=== PATIENT | male | born 1975 | race Caucasian/White ===

== ENCOUNTER → 2016-08-07 | Outpatient (CLI) | payer OTHER ==
[~2016-08-07] MED LIST: BENZ2TAB PO; HYDR-3366 PO; LEVO.1 PO; LURA120T PO; MEDI220T PO; VENL75XR PO; WALKER/ADULT/FO1 MIS; XARE10TA PO
[2016-08-07 10:54] LABS: BLOOD, URINE NEG (NEG); GLUCOSE,URINE NEG (NEG); KETONE, URINE NEG (NEG); MUCUS URINE FEW /lpf (OCC); NITRITE,URINE NEG (NEG); PH, URINE 6.5 (5.0-8.5); URINE COLOR YELLOW (YELLW/STRAW)
[2016-08-07 10:55] LABS: COMMENT (UR) CULT NOT INDICATED; CULTURE IF INDICATED CULT NOT INDICATED
[2016-08-07 10:57] LABS: AUTOMATED NEUTROPHIL # 4.1 TH/MM3 (1.8-7.7); BASOPHIL % 0.4 % (0.0-2.0); EOSINOPHIL # 0.1 TH/MM3 (0-0.4); EOSINOPHIL % 1.4 % (0.0-4.0); HEMATOCRIT 38.6 % (39.0-51.0); HEMO FLAGS DIFF FINAL; LYMPH % 23.2 % (9.0-44.0); LYMPHOCYTE # 1.4 TH/MM3 (1.0-4.8); MEAN CELL VOLUME 99.2 FL (80.0-100.0); MEAN CORPUSCULAR HEMOGLOBIN 35.1 PG (27.0-34.0); MEAN CORPUSCULAR HGB CONC 35.4 % (32.0-36.0); MONO % 8.8 % (0.0-8.0); NEUT % 66.2 % (16.0-70.0); PLATELET COUNT 327 TH/MM3 (150-450); RED BLOOD COUNT 3.89 MIL/MM3 (4.50-5.90); WHITE BLOOD COUNT 6.2 TH/MM3 (4.0-11.0)
[2016-08-07 11:26] LABS: ANION GAP 8 MEQ/L (5-15); AST (GOT) 12 U/L (15-37); BICARBONATE 24.8 MEQ/L (21.0-32.0); BLOOD UREA NITROGEN 12 MG/DL (7-18); CHLORIDE 106 MEQ/L (98-107); GLUCOSE,FASTING 98 MG/DL (74-99); SODIUM (NA) 139 MEQ/L (136-145)
[2016-08-07 11:37] LABS: ALKALINE PHOSPHATASE 120 U/L (45-117); ALT (GPT) 18 U/L (12-78); GLOMERULAR FILTRATION RATE 91 ML/MIN (>89); HDL CHOLESTEROL 45.4 MG/DL (40.0-60.0); LDL CHOLESTEROL 110 MG/DL (0-99); TOTAL BILIRUBIN ADULT 0.5 MG/DL (0.2-1.0)
== END ==
LOC: CLAB 10:26
PROVIDERS: ATTEND Family Medicine
DX: R30.0 Dysuria (principal); E03.9 Hypothyroidism, unspecified; F99 Mental disorder, not otherwise specified; Z72.0 Tobacco use
CPT/HCPCS: 36415; 80053; 80061; 81001; 84443; 85025

== ENCOUNTER 2016-09-23 11:53 | Inpatient (IN) | payer OTHER ==
[~2016-09-23] VITALS: Ht 175.3 cm; Wt 67.7 kg
[~2016-09-23 11:53] MED LIST changes: -HYDR-3366 PO; -WALKER/ADULT/FO1 MIS; -XARE10TA PO
[2016-09-23 11:54] VITALS: BP 137/69; PULSE 80; RESP 16; TEMP 97.9; O2SAT 97
--- NOTE | 2016-09-23 12:11 | PD ---
HPI . left knee pain and difficulty walking for 2 weeks Chief Complaint: Musculoskeletal Complaint Time Seen by Provider: 12:11 Travel History International Travel<30 days: No Contact w/Intl Traveler<30days: No Traveled to known affect area: No History of Present Illness HPI 41-year-old male who is a patient of the [facility] who had hip fractures not too long ago here with complaints of a fall about 2 weeks ago landing on his left knee. Patient says he has pain in his left knee and proximal tib-fib for about 2 weeks. He has had difficulty walking, but been using crutches from his previous injuries. He has not yet followed up with Dr. Balderrama in the [facility] and decided to come to the emergency room for evaluation. He rates the pain as 9/10 without any radiation. The pain is localized right to the distal knee and proximal tib-fib area. PFSH Past Medical History Cancer: No Cardiovascular Problems: No Genitourinary: No Musculoskeletal: No Neurologic: No Psychiatric: Yes (SCHIZOPHRENIA ) Reproductive: No Respiratory: No Thyroid Disease: Yes Social History Alcohol Use: No Tobacco Use: Yes Substance Use: No Allergies-Medications (Allergen,Severity, Reaction): Coded Allergies: Levothyroxine (Verified Adverse Reaction, Severe, 09/23/16) Reported Meds & Prescriptions Reported Meds & Active Scripts Active Synthroid (Levothyroxine Sodium) 100 Mcg Tab 100 Mcg PO DAILY Effexor XR 24 HR (Venlafaxine HCl) 75 Mg Cap 75 Mg PO DAILY Benztropine (Benztropine Mesylate) 2 Mg Tab 2 Mg PO BID Latuda (Lurasidone) 120 Mg Tab 160 Mg PO HS Naproxen Sodium 220 Mg Tab 440 Mg PO BID Review of Systems General / Constitutional: No: Fever Eyes: No: Visual changes HENT: No: Headaches Cardiovascular: No: Chest Pain or Discomfort Respiratory: No: Shortness of Breath Gastrointestinal: No: Abdominal Pain Genitourinary: No: Dysuria Musculoskeletal: Positive: Pain (left knee pain) Skin: No Rash Neurologic: No: Weakness Psychiatric: No: Depression Endocrine: No: Polydipsia Hematologic/Lymphatic: No: Easy Bruising Physical Exam Narrative GENERAL: AAO x 3, no acute distress, Well-nourished, well-developed patient. SKIN: Warm and dry. No visible rashes or bruising. HEAD: Normocephalic and atraumatic. EYES: No scleral icterus. No injection or drainage. EOM intact, PERRLA ENT: No nasal drainage noted. Mucous membranes pink. Airway patent. NECK: Supple, trachea midline. No JVD. CARDIOVASCULAR: Regular rate and rhythm without murmurs, gallops, or rubs. RESPIRATORY: Breath sounds equal bilaterally. No accessory muscle use. No rhonchi or rales. GASTROINTESTINAL: Abdomen soft, non-tender, nondistended. EXTREMITIES: No cyanosis or edema. left knee slightly edematous compared to right, no definitive effusion appreciated.There is limited extension due to pain and tenderness in the left distal knee and prox tib/fib BACK: Nontender without obvious deformity. No CVA tenderness. PSYCH: AAO x 3, normal affect. Data Data Last Documented VS Vital Signs Date Time Temp Pulse Resp B/P Pulse Ox O2 Delivery O2 Flow Rate FiO2 09/23/16 11:54 97.9 80 16 137/69 97 Orders Knee, Complete (4vws) (09/23/16 12:19) Methylprednisolone So Succ Inj (Solumedr (09/23/16 12:30) Ct Knee W/O Contrast (09/23/16 ) MDM Medical Decision Making Medical Screen Exam Complete: Yes Emergency Medical Condition: Yes Medical Record Reviewed: Yes Differential Diagnosis knee fracture, tib/fib fracture, less likely dislocation, Narrative Course 41-year-old male who is a patient of the [facility] who had hip fractures not too long ago here with complaints of a fall about 2 weeks ago landing on his left knee. Patient says he has pain in his left knee and proximal tib-fib for about 2 weeks. He has had difficulty walking, but been using crutches from his previous injuries. He has not yet followed up with Dr. Balderrama in the [facility] and decided to come to the emergency room for evaluation. He rates the pain as 9/10 without any radiation. The pain is localized right to the distal knee and proximal tib area. Patient seen and examined. He does have tenderness on left knee and pain with movement. He additionally has limited ROM and I do not know how he has been moving around for 2 weeks. Xray ordered for possible fracture 1430: Discussed with Dr. Estevez's nurse get CT scan of knee to further evaluate fracture to see if admission vs. f/u as outpatient CT resulted: call placed for a call back to ortho: [id number] Last Impressions Knee X-Ray 09/23/16 1219 Signed Impressions: Service Date/Time: Friday, September 23, 2016 13:00 - CONCLUSION: T-shaped fracture involving proximal tibia and tibial plateau. Teto Salazar MD FACR Lower Extremity CT 09/23/16 0000 Signed Impressions: Service Date/Time: Friday, September 23, 2016 16:24 - CONCLUSION: Comminuted proximal tibial fractures involving medial, lateral, and posterior lateral articular surface and with fracture lines extending to the iliac spines. There is also a solitary longitudinal fracture through the proximal fibula. Kevin Traylor MD spoke with Dr. Gregorio Spain NP for Dr. Estevez patient to be admitted for repair tomorrow. Dr. Hanson may be involved with the case. Knee immobilizer and non wt bearing. He will need a medical admission. I have transferred case to the medical beds. That provider will admit the patient. Diagnosis Primary Impression: Tibial plateau fracture, left Qualified Code: S82.142A - Tibial plateau fracture, left, closed, initial encounter Additional Impression: Tibial fracture Qualified Code: S82.192A - Other closed fracture of proximal end of left tibia , initial encounter Admitting Information Admitting Physician Requests: Admit Condition: Stable Sagrario Morris Sep 23, 2016 12:11
[2016-09-23] MEDS ORDERED: methylPREDNISolone SOD SUCC 125 MG/2 ML VIAL IM ONE (12:30)
--- NOTE | 2016-09-23 13:22 | RADRPT ---
EXAM DATE/TIME: 09/23/2016 13:00 [facility] COMPARISON: No previous studies available for comparison. INDICATIONS : Pain from falling off of a roof. MEDICAL HISTORY : None. SURGICAL HISTORY : None. ENCOUNTER: Initial ACUITY: 2 weeks PAIN SCORE: 7/10 LOCATION: Left knee. FINDINGS: There is a horizontal fracture across the proximal tibia with a vertical component that does extend i nto the medial plateau. A small bony fragment is evident. Joint effusion is noted. Fibula is intac t. CONCLUSION: T-shaped fracture involving proximal tibia and tibial plateau. Teto Salazar MD FACR on September 23, 2016 at 13:14 Board Certified Radiologist. This report was verified electronically.
--- NOTE | 2016-09-23 17:32 | RADRPT ---
EXAM DATE/TIME: 09/23/2016 16:24 [facility] COMPARISON: KNEE LEFT COMPLETE (4VWS), September 23, 2016, 13:00. INDICATIONS : Fall two weeks ago; left knee pain. RADIATION DOSE: 5.27 CTDIvol (mGy) MEDICAL HISTORY : None SURGICAL HISTORY : None. ENCOUNTER: Initial ACUITY: 2 weeks PAIN SCALE: 5/10 LOCATION: Left knee TECHNIQUE: Volumetric scanning of the knee was performed. Using automated exposure control and adjustment of th e mA and/or kV according to patient size, radiation dose was kept as low as reasonably achievable to obtain optimal diagnostic quality images. FINDINGS: There are comminuted fractures of the proximal tibia with comminuted fracture lines oblique through t he posterior metaphysis, oblique through the lateral metaphysis, oblique through the medial diametaph yseal region. Fracture line also extends through the lateral tibial spine. There is a another fract ure line which extends into the articular surface of the medial tibial plateau anteriorly with severa l millimeters step off. There is a posterior intra-articular fracture line in the lateral tibial bob teau. There is also a longitudinal fracture through the distal fibula. No fracture is seen in the patella or distal femur. Small size knee effusion. CONCLUSION: Comminuted proximal tibial fractures involving medial, lateral, and posterior lateral articular surfa ce and with fracture lines extending to the iliac spines. There is also a solitary longitudinal frac ture through the proximal fibula. Kevin Traylor MD on September 23, 2016 at 17:20 Board Certified Radiologist. This report was verified electronically.
[2016-09-23 19:00] VITALS: BP 128/73; PULSE 73; RESP 14; O2SAT 97
[2016-09-23] MEDS ORDERED: SODIUM CHLORID 0.9% 500 ML INJ 500 ML IV ONE (19:00)
[2016-09-23] MEDS ORDERED: SODIUM CHLORIDE 0.9% FLUSH 10 ML FLUSH IVF PRN (19:00)
[2016-09-23] MEDS ORDERED: MORPHINE SULFATE 4 MG/ML INJ IV PUSH ONE (19:30)
[2016-09-23 19:31] LABS: AUTOMATED NEUTROPHIL # 8.2 TH/MM3 (1.8-7.7); HEMATOCRIT 37.1 % (39.0-51.0); HEMO FLAGS DIFF FINAL; LYMPH % 3.6 % (9.0-44.0); LYMPHOCYTE # 0.3 TH/MM3 (1.0-4.8); MEAN CELL VOLUME 101.3 FL (80.0-100.0); MEAN CORPUSCULAR HEMOGLOBIN 34.9 PG (27.0-34.0); MEAN CORPUSCULAR HGB CONC 34.4 % (32.0-36.0); MONO % 0.6 % (0.0-8.0); NEUT % 95.8 % (16.0-70.0); PLATELET COUNT 415 TH/MM3 (150-450); RED BLOOD COUNT 3.66 MIL/MM3 (4.50-5.90); RED CELL DISTRIBUTION WIDTH 13.2 % (11.6-17.2); WHITE BLOOD COUNT 8.6 TH/MM3 (4.0-11.0)
[2016-09-23 19:40] LABS: PROTHROMBIN TIME - PATIENT 11.3 SEC (9.8-11.6)
[2016-09-23 19:47] LABS: BICARBONATE 27.3 MEQ/L (21.0-32.0); POTASSIUM 4.1 MEQ/L (3.5-5.1)
[2016-09-23 20:00] VITALS: BP 109/69; PULSE 78; RESP 20; TEMP 96.5; O2SAT 99
--- NOTE | 2016-09-23 20:12 | PD ---
HPI Chief Complaint: Musculoskeletal Complaint Time Seen by Provider: 18:35 Travel History International Travel<30 days: No Contact w/Intl Traveler<30days: No Traveled to known affect area: No History of Present Illness HPI 41-year-old male came to the emergency room for left leg pain after a fall injury 1 week ago. 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 He landed on his left knee. He was in pain initially but then decided to continue walking with crutches. The patient was not getting better he decided to come in today. He was seen by the provider in triage. X-ray was ordered which showed comminuted tib-fib fracture. She discussed the case with the orthopedist who wanted the patient to be admitted and a CAT scan. CT was ordered and done as well prior to patient coming into the room. [facility] Past Medical History Narrative Medical List of his past medical, surgical, social and family history was reviewed from the nursing note. Cancer: No Cardiovascular Problems: No Genitourinary: No Musculoskeletal: No Neurologic: No Psychiatric: Yes (SCHIZOPHRENIA ) Reproductive: No Respiratory: No Thyroid Disease: Yes Past Surgical History Surgical History: No Previous Surgery Social History Alcohol Use: No Tobacco Use: Yes (1ppd) Substance Use: No Allergies-Medications (Allergen,Severity, Reaction): Coded Allergies: Levothyroxine (Verified Adverse Reaction, Severe, 09/23/16) Comments List of his allergies reviewed from the nursing note. Reported Meds & Prescriptions Reported Meds & Active Scripts Active Synthroid (Levothyroxine Sodium) 100 Mcg Tab 100 Mcg PO DAILY Effexor XR 24 HR (Venlafaxine HCl) 75 Mg Cap 75 Mg PO DAILY Benztropine (Benztropine Mesylate) 2 Mg Tab 2 Mg PO BID Latuda (Lurasidone) 120 Mg Tab 160 Mg PO HS Naproxen Sodium 220 Mg Tab 440 Mg PO BID Narrative Medication List of his home medications reviewed from the nursing note. Review of Systems Except as stated in HPI: all other systems reviewed are Neg Physical Exam Narrative GENERAL: Awake, alert, no obvious distress SKIN: Focused skin assessment warm/dry. HEAD: Atraumatic. Normocephalic. EYES: Pupils equal and round. No scleral icterus. No injection or drainage. ENT: No nasal bleeding or discharge. Mucous membranes pink and moist. NECK: Trachea midline. No JVD. CARDIOVASCULAR: Regular rate and rhythm. No murmur appreciated. RESPIRATORY: No accessory muscle use. Clear to auscultation. Breath sounds equal bilaterally. GASTROINTESTINAL: Abdomen soft, non-tender, nondistended. Hepatic and splenic margins not palpable. MUSCULOSKELETAL: No obvious deformities. No clubbing. No cyanosis. No edema. Left leg knee immobilizer on. Distal pulses are not palpable but Doppler better. Sensation intact. NEUROLOGICAL: Awake and alert. No obvious cranial nerve deficits. Motor grossly within normal limits. Normal speech. PSYCHIATRIC: Appropriate mood and affect; insight and judgment normal. Data Data Last Documented VS Vital Signs Date Time Temp Pulse Resp B/P Pulse Ox O2 Delivery O2 Flow Rate FiO2 09/23/16 19:00 73 14 128/73 97 Room Air 09/23/16 11:54 97.9 Orders Knee, Complete (4vws) (09/23/16 12:19) Methylprednisolone So Succ Inj (Solumedr (09/23/16 12:30) Ct Knee W/O Contrast (09/23/16 ) ^ Knee Immobilizer (09/23/16 18:20) Electrocardiogram (09/23/16 18:52) Basic Metabolic Panel (Bmp) (09/23/16 18:52) Complete Blood Count With Diff (09/23/16 18:52) Prothrombin Time / Inr (Pt) (09/23/16 18:52) Sodium Chloride 0.9% Flush (Ns Flush) (09/23/16 19:00) Sodium Chlorid 0.9% 500 Ml Inj (Ns 500 M (09/23/16 19:00) Npo After Midnight W/ Po Meds (09/23/16 Dinner) Morphine Inj (Morphine Inj) (09/23/16 19:30) Diet Heart Healthy (09/24/16 Breakfast) Admit Order (Ed Use Only) (09/23/16 19:49) Labs Laboratory Tests Test 09/23/16 19:16 White Blood Count 8.6 TH/MM3 Red Blood Count 3.66 MIL/MM3 Hemoglobin 12.8 GM/DL Hematocrit 37.1 % Mean Corpuscular Volume 101.3 FL Mean Corpuscular Hemoglobin 34.9 PG Mean Corpuscular Hemoglobin 34.4 % Concent Red Cell Distribution Width 13.2 % Platelet Count 415 TH/MM3 Mean Platelet Volume 8.6 FL Neutrophils (%) (Auto) 95.8 % Lymphocytes (%) (Auto) 3.6 % Monocytes (%) (Auto) 0.6 % Eosinophils (%) (Auto) 0.0 % Basophils (%) (Auto) 0.0 % Neutrophils # (Auto) 8.2 TH/MM3 Lymphocytes # (Auto) 0.3 TH/MM3 Monocytes # (Auto) 0.0 TH/MM3 Eosinophils # (Auto) 0.0 TH/MM3 Basophils # (Auto) 0.0 TH/MM3 CBC Comment DIFF FINAL Differential Comment Prothrombin Time 11.3 SEC Prothromb Time International 1.0 RATIO Ratio Sodium Level 138 MEQ/L Potassium Level 4.1 MEQ/L Chloride Level 103 MEQ/L Carbon Dioxide Level 27.3 MEQ/L Anion Gap 8 MEQ/L Blood Urea Nitrogen 17 MG/DL Creatinine 0.87 MG/DL Estimat Glomerular Filtration 96 ML/MIN Rate Random Glucose 133 MG/DL Calcium Level 9.1 MG/DL [facility] Medical Decision Making Medical Screen Exam Complete: Yes Emergency Medical Condition: Yes Medical Record Reviewed: Yes Interpretation(s) Twelve-lead EKG was reviewed by me. Normal sinus rhythm, normal axis. Heart rate of 68 bpm. Differential Diagnosis Comminuted tib-fib fracture Narrative Course 8 PM patient was admitted to the hospitalist. He is nothing by mouth after midnight. Given his abnormal appearance of the EKG I asked the patient if he had ever developed chest pain during the past one week or currently and he said that he was chest pain-free completely and never had any chest pain or arm pain or neck pain. There are no old EKGs to compare with. Procedures EKG Prior to Arrival: No Diagnosis Primary Impression: Tibial plateau fracture, left Qualified Code: S82.142A - Tibial plateau fracture, left, closed, initial encounter Additional Impression: Tibial fracture Qualified Code: S82.192A - Other closed fracture of proximal end of left tibia , initial encounter Admitting Information Admitting Physician Requests: Admit Condition: Stable Radha Nunez MD Sep 23, 2016 20:11
[2016-09-23] MEDS: SODIUM CHLOR 0.9% 1000 ML INJ 1,000 ML IV SCH (20:17)
--- NOTE | 2016-09-23 20:24 | HHI.HP ---
[facility] Primary Care Physician Admission Diagnosis tib-fib fracture Diagnoses: (1) Fall Diagnosis: Principal (2) Tibial plateau fracture, left Diagnosis: Principal (3) Schizophrenia Diagnosis: Principal (4) Tobacco abuse Diagnosis: Principal Travel History International Travel<30 Days: No Contact w/Intl Traveler <30 Da: No Traveled to Known Affected Are: No History of Present Illness This is a 41-year-old male with a PMH of Schizophrenia and Tobacco Abuse who presented to the ER with complaints of left knee pain. States pain has been ongoing for approx 2wks after a fall. States he has been getting around with crutches but has been having worsening pain. Follows w/ Dr. Balderrama as outpatient, but hasn't followed up for recent complaints. On arrival, BP 137/69 , HR 80, O2 sat 97% on RA, Afebrile. CBC essentially unremarkable except for elevated neutrophil count. Chemistry unremarkable. INR 1.0. Knee X-ray with T -shaped fracture involving proximal tibia and tibial plateau. Dr. Hickman consulted by ER physician, recommended CT Knee and consult for Dr. Hanson in am for surgical intervention. CT Knee w/ comminuted proximal tibial fractures involving medial lateral and posterior lateral articular surface with fracture lines extending into iliac spines, solitary longitudinal fracture through the proximal fibula. Review of Systems Except as stated in HPI: all other systems reviewed are Neg ROS: 14 point review of systems otherwise negative. Past Family Social History Past Medical History PMH: Schizophrenia and Tobacco Abuse Past Surgical History PAST SURGICAL HISTORY: None Allergies: Coded Allergies: Levothyroxine (Verified Adverse Reaction, Severe, 09/23/16) Family History PAST FAMILY HISTORY: Reviewed. No h/o DM or CAD Social History PAST SOCIAL HISTORY: Negative for alcohol or drugs. Positive for tobacco. Physical Exam Vital Signs Vital Signs Date Time Temp Pulse Resp B/P Pulse Ox O2 Delivery O2 Flow Rate FiO2 09/23/16 19:00 73 14 128/73 97 Room Air 09/23/16 11:54 97.9 80 16 137/69 97 Physical Exam PE: GENERAL: Young male in no acute distress. HEENT: PERRLA, EOMI. No scleral icterus or conjunctival pallor. No lid lag or facial droop. CARDIOVASCULAR: Regular rate and rhythm. No obvious murmurs to auscultation. No chest tenderness to palpation. RESPIRATORY: No obvious rhonchi or wheezing. Clear to auscultation. Breath sounds equal bilaterally. GASTROINTESTINAL: Abdomen soft, non-tender, nondistended. BS normal. MUSCULOSKELETAL: Decreased ROM of LLE due to injury. Pulses intact. NEUROLOGICAL: Awake, alert and oriented x4. No focal neurologic deficits. Moving both upper and lower extremities spontaneously. Laboratory Laboratory Tests Test 09/23/16 19:16 White Blood Count 8.6 Red Blood Count 3.66 Hemoglobin 12.8 Hematocrit 37.1 Mean Corpuscular Volume 101.3 Mean Corpuscular Hemoglobin 34.9 Mean Corpuscular Hemoglobin 34.4 Concent Red Cell Distribution Width 13.2 Platelet Count 415 Mean Platelet Volume 8.6 Neutrophils (%) (Auto) 95.8 Lymphocytes (%) (Auto) 3.6 Monocytes (%) (Auto) 0.6 Eosinophils (%) (Auto) 0.0 Basophils (%) (Auto) 0.0 Neutrophils # (Auto) 8.2 Lymphocytes # (Auto) 0.3 Monocytes # (Auto) 0.0 Eosinophils # (Auto) 0.0 Basophils # (Auto) 0.0 CBC Comment DIFF FINAL Differential Comment Prothrombin Time 11.3 Prothromb Time International 1.0 Ratio Sodium Level 138 Potassium Level 4.1 Chloride Level 103 Carbon Dioxide Level 27.3 Anion Gap 8 Blood Urea Nitrogen 17 Creatinine 0.87 Estimat Glomerular Filtration 96 Rate Random Glucose 133 Calcium Level 9.1 Result Diagram: 09/23/16191509/23/161915 Assessment and Plan Problem List: (1) Fall ICD Code: W19.XXXA Status: Acute (2) Tibial plateau fracture, left ICD Code: S82.142A Status: Acute (3) Schizophrenia ICD Code: F20.9 Status: Chronic (4) Tobacco abuse ICD Code: Z72.0 Status: Chronic Assessment and Plan A/P: 1. Fall: s/p mechanical slip and fall 2 wks ago, denies head trauma or LOC, reports difficulty walking x2 wks w/ increasing pain, has been using crutches, no medical attention for injuries. 2. Left Tibial Plateau Fx: s/p fall 2 wks ago w/ ongoing c/o pain, mild swelling to left knee. X-ray w/ T-shaped fracture involving proximal tibia and tibial plateau, images reviewed by me. Dr. Hickman consulted by ER physician, recommended CT LE and consult for Dr. Hanson in a.m. for surgical intervention. CT LE with comminuted proximal tibial fractures extending to the iliac spines and solitary longitudinal fracture through proximal fibula, images reviewed by me. Keep NPO for surgical intervention, IVF, analgesics/antiemetics as needed. 3. Schizophrenia: Resume home Benztropine, Latuda and Effexor. 4. Tobacco Abuse: Pt counselled. Ativan/NicoDerm prn 5. DVT Prophylaxis: Anticoagulation post op per Ortho 6. Social work for d/c planning as needed. 7. Case discussed w/ ER physician at length. Physician Certification 2 Midnight Certification Type: Admission for Inpatient Services Order for Inpatient Services The services are ordered in accordance with Medicare regulations or non- Medicare payer requirements, as applicable. In the case of services not specified as inpatient-only, they are appropriately provided as inpatient services in accordance with the 2-midnight benchmark. Estimated LOS (days): 2 days is the estimated time the patient will need to remain in the hospital, assuming treatment plan goals are met and no additional complications. Post-Hospital Plan: Not yet determined Problem Qualifiers (1) Tibial plateau fracture, left: Qualified Code: S82.142A - Tibial plateau fracture, left, closed, initial encounter Lizbet Hernandez MD Sep 23, 2016 20:24
[2016-09-23] MEDS ORDERED: ONDANSETRON HCL 4 MG/2 ML VIAL IVP PRN (20:30)
[2016-09-23] MEDS ORDERED: ACETAMINOPHEN 325 MG TAB PO PRN (20:30)
[2016-09-23] MEDS ORDERED: BISACODYL 10 MG SUPP RECTAL PRN (20:30)
[2016-09-23] MEDS ORDERED: SODIUM CHLORIDE 0.9% FLUSH 10 ML FLUSH IV FLUSH PRN (20:30)
[2016-09-23] MEDS: SODIUM CHLORIDE 0.9% FLUSH 10 ML FLUSH IV FLUSH SCH (21:00)
--- NOTE | 2016-09-23 23:43 | EKG ---
Date Performed: 09/23/2016 Time Performed: 19:12:39 PTAGE: 41 years EKG: Sinus rhythm SEPTAL MYOCARDIAL INFARCTION INTERPRETATION BASED ON A DEFAULT AGE OF 39 YEARS NO PREVIOUS TRACING DOCTOR: Zelalem Zamora Interpretating Date/Time 09/23/2016 23:41:32
[2016-09-23] MEDS: MORPHINE SULFATE 4 MG/ML INJ IV PRN (23:44)
[2016-09-24] VITALS: BP 102/57; PULSE 82; RESP 20; TEMP 97.4; O2SAT 95
[2016-09-24] MEDS: BENZTROPINE MESYLATE 2 MG TAB PO SCH ×3 (00:09→19:58)
[2016-09-24] MEDS: LURASIDONE 40 MG TAB PO SCH ×2 (00:10→19:59)
[2016-09-24] MEDS ORDERED: LORazepam 2 MG/ML VIAL IV PUSH PRN (01:00)
[2016-09-24] MEDS: SODIUM CHLOR 0.9% 1000 ML INJ 1,000 ML IV SCH (06:17)
[2016-09-24 06:44] LABS: AUTOMATED NEUTROPHIL # 7.9 TH/MM3 (1.8-7.7); BASOPHIL % 0.3 % (0.0-2.0); EOSINOPHIL % 0.2 % (0.0-4.0); HEMATOCRIT 35.3 % (39.0-51.0); HEMO FLAGS DIFF FINAL; LYMPH % 10.2 % (9.0-44.0); MEAN CELL VOLUME 101.6 FL (80.0-100.0); MEAN CORPUSCULAR HEMOGLOBIN 34.2 PG (27.0-34.0); MEAN CORPUSCULAR HGB CONC 33.6 % (32.0-36.0); MONO % 8.8 % (0.0-8.0); NEUT % 80.5 % (16.0-70.0); PLATELET COUNT 390 TH/MM3 (150-450); RED BLOOD COUNT 3.47 MIL/MM3 (4.50-5.90); RED CELL DISTRIBUTION WIDTH 13.4 % (11.6-17.2); WHITE BLOOD COUNT 9.8 TH/MM3 (4.0-11.0)
[2016-09-24 06:45] LABS: ALT (GPT) 12 U/L (12-78); ANION GAP 4 MEQ/L (5-15); AST (GOT) 11 U/L (15-37); BICARBONATE 28.8 MEQ/L (21.0-32.0); BLOOD UREA NITROGEN 22 MG/DL (7-18); CHLORIDE 109 MEQ/L (98-107); GLOMERULAR FILTRATION RATE 98 ML/MIN (>89); POTASSIUM 4.4 MEQ/L (3.5-5.1); SODIUM (NA) 142 MEQ/L (136-145)
[2016-09-24 06:48] LABS: ALKALINE PHOSPHATASE 181 U/L (45-117); TOTAL BILIRUBIN ADULT 0.3 MG/DL (0.2-1.0)
[2016-09-24] MEDS: MORPHINE SULFATE 4 MG/ML INJ IV PRN ×3 (07:16→16:23)
[2016-09-24 07:21] VITALS: BP 97/55; PULSE 75; RESP 16; TEMP 95.9; O2SAT 95
[2016-09-24] MEDS ORDERED: LEVOTHYROXINE SODIUM 100 MCG TAB PO SCH (09:00)
[2016-09-24] MEDS: SODIUM CHLORIDE 0.9% FLUSH 10 ML FLUSH IV FLUSH SCH ×2 (09:00→19:59)
--- NOTE | 2016-09-24 09:09 | HHI.PR ---
Subjective Remarks No acute events overnight. Afebrile, vital signs stable. The patient states his knee pain is well controlled on his current medication regimen. He has no other complaints at this time. Objective Vitals Vital Signs Date Time Temp Pulse Resp B/P Pulse Ox O2 Delivery O2 Flow Rate FiO2 09/24/16 07:21 95.9 75 16 97/55 95 09/24/16 00:00 97.4 82 20 102/57 95 09/23/16 20:00 96.5 78 20 109/69 99 09/23/16 19:00 73 14 128/73 97 Room Air 09/23/16 11:54 97.9 80 16 137/69 97 I/O 09/23/16 09/23/16 09/23/16 09/24/16 09/24/16 09/24/16 07:00 15:00 23:00 07:00 15:00 23:00 Intake Total 240 ml 0 ml Output Total 200 ml 0 ml Balance 40 ml 0 ml Intake Oral 240 ml 0 ml Output Urine Total 200 ml 0 ml # Voids 1 # Bowel Movements 0 0 Result Diagram: 09/24/16 0551 09/24/16 0551 Objective Remarks Gen.: No acute distress Head: Normocephalic. Atraumatic. EENT: Pupils equal round and reactive to light. Nose without drainage. Airway intact. Throat without injection. Cardiovascular: Regular rate and rhythm. No murmurs, rubs or gallops. Respiratory: Lungs clear to auscultation bilaterally. No wheezes or rhonchi. Abdomen: Soft, nontender, nondistended. No peritoneal signs. Musculoskeletal: No gross deformities. No edema. Skin: No obvious rashes or erythema. Neuro: Sensory and motor grossly intact. Cranial nerves II through XII grossly intact. Psych: Appropriate mood and affect A/P Problem List: (1) Fall ICD Code: W19.XXXA Status: Acute (2) Tibial plateau fracture, left ICD Code: S82.142A Status: Acute (3) Schizophrenia ICD Code: F20.9 Status: Chronic (4) Tobacco abuse ICD Code: Z72.0 Status: Chronic Assessment and Plan 1. Fall: s/p mechanical slip and fall 2 wks ago, denies head trauma or LOC, reports difficulty walking x2 wks w/ increasing pain, has been using crutches, no medical attention for injuries. 2. Left Tibial Plateau Fx: s/p fall 2 wks ago w/ ongoing c/o pain, mild swelling to left knee. X-ray w/ T-shaped fracture involving proximal tibia and tibial plateau. Orthopedic surgery consulted, plan for patient to go to surgery today. CT LE with comminuted proximal tibial fractures extending to the iliac spines and solitary longitudinal fracture through proximal fibula. Keep NPO for surgical intervention, IVF, analgesics/antiemetics as needed. 3. Schizophrenia: Resume home Benztropine, Latuda and Effexor. 4. Tobacco Abuse: Pt counselled. Ativan/NicoDerm prn 5. DVT Prophylaxis: Anticoagulation post op per Ortho 6. Social work for d/c planning as needed. Problem Qualifiers (1) Tibial plateau fracture, left: Qualified Code: S82.142A - Tibial plateau fracture, left, closed, initial encounter Aileen Vazquez MD R3 Sep 24, 2016 09:08
[2016-09-24] MEDS: VENLAFAXINE HCL XR 75 MG CAP PO SCH (09:34)
[2016-09-24 11:29] VITALS: BP 97/55; PULSE 77; RESP 16; TEMP 97; O2SAT 97
--- NOTE | 2016-09-24 12:16 | MB ---
cc: RYLIE HOGUE DATE OF CONSULTATION: 09/24/2016 REASON FOR CONSULTATION: Left tibial plateau fracture. HISTORY The patient is a 41-year-old man who says about 2 weeks ago sustained an injury after a fall. The patient noticed immediate pain but did not think it was too severe. He got some crutches to stay off of it and ultimately he was advised that since he was having some sharp pain he should probably come in and have it checked out at the hospital. X-rays were taken. He was found to have a complex proximal tibial plateau fracture. The emergency room contacted the undersigned. I reviewed the case. I recommended to get a CT scan to further characterize the nature of this injury. The patient does not complain of numbness or tingling about the lower extremity. He said he has some bruising on the leg. He denies pain in the right lower extremity or bilateral upper extremities. He denies any significant problems with that knee in the past. The patient was placed in a canvas knee splint and admitted to the hospital. PAST MEDICAL HISTORY: Past medical history is positive for tobacco abuse and history of schizophrenia. PAST SURGICAL HISTORY None. ALLERGIES Levothyroxine FAMILY HISTORY: Noncontributory. SOCIAL HISTORY Negative for alcohol or illicit drugs. Positive for tobacco. REVIEW OF SYSTEMS: A 12 point review of systems is negative except as noted in the history of present illness. PHYSICAL EXAMINATION: The patient's temperature is 97.9, pulse is 80, blood pressure is 137/69. GENERAL: The patient is awake, alert and oriented x3. Normal affect, insight and judgment. He is not in any significant distress from pain. Head: Atraumatic. Extraocular muscles are intact. Oropharynx is moist. Neck: Supple. Heart: Regular rate and rhythm. Lungs: Clear to auscultation bilaterally. Abdomen: Soft, non-tender, non-distended. Extremities: Left lower extremity currently has a canvas knee splint applied. He has some mild swelling with no tenderness about the calf. He can actually move the toes well. He has 2+ dorsalis pedis pulse on the left foot. His right lower extremity has no tenderness about the knee or the ankle, moves toes well. His bilateral upper extremities have good active range of motion. LABORATORY STUDIES: Laboratory studies shows a white cell count of 8.6, hematocrit 37.1, platelets of 415, creatinine is 0.87, glucose 133. I reviewed the images and the report associated with the knee x-ray and the CT scan of the knee, and essentially shows a bicondylar tibial plateau fracture of the lateral side, is only minimally displaced, however, on the medial side. There is a coronal split with at least some mild displacement of the articular surface. IMPRESSION: Complex tibial plateau fracture, bicondylar left leg. Chronic tobacco use. Schizophrenia DECISION-MAKING: This is a very complex fracture pattern on the leg. I have recommended complete non-weightbearing on the leg and the use of a canvas knee splint. I would like to consult one of my partner's, Dr. Hanson, who is a dedicated orthopedic traumatologist to have his opinion on whether surgical management would be indicated for this injury, especially because of that split, with some displacement of the articular surface. I am concerned that with nonoperative management, the patient could potentially have a significant increased chance for arthritis and pain. Additionally nonoperative management could be fraught with problems of displacement of the fracture leading to angular deformity or further incongruity of the joint surface, however, surgical management does have its own risks such as injury, bleeding, infection, failure of hardware, need for reoperation, continued pain, loss of range of motion to associated joints, DVT, pulmonary embolus, pneumonia and . At this point, the treatment plan has not been completely defined. MD LANDON Dillon/JEROMY /11:04 AM /12:03 PM
[2016-09-24 15:25] VITALS: BP 106/53; PULSE 91; RESP 18; TEMP 97.7; O2SAT 97
[2016-09-24 20:00] VITALS: BP 112/70; PULSE 76; RESP 16; TEMP 97.3; O2SAT 97
[2016-09-24] MEDS: ACETAMINOPHEN/HYDROcodone 325 MG/5 MG TAB PO PRN (20:06)
[2016-09-24 23:25] VITALS: BP 105/60; PULSE 77; RESP 20; TEMP 97.3; O2SAT 97
[2016-09-25] MEDS: MORPHINE SULFATE 4 MG/ML INJ IV PRN ×2 (05:37→10:01)
[2016-09-25 06:46] LABS: BASOPHIL # 0.1 TH/MM3 (0-0.2); BASOPHIL % 0.7 % (0.0-2.0); EOSINOPHIL # 0.2 TH/MM3 (0-0.4); EOSINOPHIL % 1.7 % (0.0-4.0); HEMATOCRIT 34.9 % (39.0-51.0); HEMO FLAGS DIFF FINAL; LYMPH % 20.6 % (9.0-44.0); LYMPHOCYTE # 1.8 TH/MM3 (1.0-4.8); MEAN CELL VOLUME 101.5 FL (80.0-100.0); MEAN CORPUSCULAR HEMOGLOBIN 34.6 PG (27.0-34.0); MEAN CORPUSCULAR HGB CONC 34.1 % (32.0-36.0); PLATELET COUNT 366 TH/MM3 (150-450); RED BLOOD COUNT 3.44 MIL/MM3 (4.50-5.90); RED CELL DISTRIBUTION WIDTH 13.8 % (11.6-17.2); WHITE BLOOD COUNT 8.8 TH/MM3 (4.0-11.0)
[2016-09-25 07:09] LABS: BICARBONATE 30.8 MEQ/L (21.0-32.0); POTASSIUM 3.7 MEQ/L (3.5-5.1)
--- NOTE | 2016-09-25 07:14 | PD.ORT.PN ---
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 Slipped on shingle. Fell to ground. Injured 2 weeks ago and came to the ER this weekend. Diagnosed with a left tibia plateau fracture. States he has been on crutches and has been nonweightbearing. Smokes approximately a pack of cigarettes a day Objective Vitals Vital Signs Date Time Temp Pulse Resp B/P Pulse Ox O2 Delivery O2 Flow Rate FiO2 09/24/16 23:25 97.3 77 20 105/60 97 09/24/16 20:00 97.3 76 16 112/70 97 09/24/16 15:25 97.7 91 18 106/53 97 09/24/16 11:29 97.0 77 16 97/55 97 09/24/16 07:21 95.9 75 16 97/55 95 I/O 09/24/16 09/24/16 09/24/16 09/25/16 09/25/16 09/25/16 07:00 15:00 23:00 07:00 15:00 23:00 Intake Total 0 ml 480 ml 480 ml Output Total 0 ml 650 ml 600 ml Balance 0 ml 480 ml -170 ml -600 ml Intake Oral 0 ml 480 ml 480 ml Output Urine Total 0 ml 650 ml 600 ml # Voids 2 1 # Bowel Movements 0 0 0 Result Diagram: 09/25/16 0550 09/24/16 0551 Imaging Last 72 hours Impressions Knee X-Ray 09/23/16 1219 Signed Impressions: Service Date/Time: Friday, September 23, 2016 13:00 - CONCLUSION: T-shaped fracture involving proximal tibia and tibial plateau. Teto Salazar MD FACR Lower Extremity CT 09/23/16 0000 Signed Impressions: Service Date/Time: Friday, September 23, 2016 16:24 - CONCLUSION: Comminuted proximal tibial fractures involving medial, lateral, and posterior lateral articular surface and with fracture lines extending to the iliac spines. There is also a solitary longitudinal fracture through the proximal fibula. Kevin Traylor MD Objective Remarks Left lower extremity: No pain with hip or ankle range of motion. Knee range of motion is from 0 to 80. He has tenderness over both the lateral and medial plateaus. Moderate swelling and skin is intact. Distally intact sensation with good capillary refills and strong dorsiflexion plantar flexion foot Assessment & Plan Assessment and Plan Left tibia plateau fracture Nothing by mouth after midnight Surgery tomorrow for fixation of plateau Nonweightbearing and maintain knee immobilizer Ice and elevate Tyler Huffman Jr. Sep 25, 2016 07:14
[2016-09-25 07:27] VITALS: BP 118/71; PULSE 68; RESP 18; TEMP 96.8; O2SAT 97
[2016-09-25] MEDS: SODIUM CHLORIDE 0.9% FLUSH 10 ML FLUSH IV FLUSH SCH (09:00)
--- NOTE | 2016-09-25 09:18 | HHI.PR ---
Subjective Remarks f/u tib/fib fracture. patient stated pain is controlled. he has no complaints. he asked for his pain medication and coffee. No acute events. Objective Vitals Vital Signs Date Time Temp Pulse Resp B/P Pulse Ox O2 Delivery O2 Flow Rate FiO2 09/25/16 07:27 96.8 68 18 118/71 97 09/24/16 23:25 97.3 77 20 105/60 97 09/24/16 20:00 97.3 76 16 112/70 97 09/24/16 15:25 97.7 91 18 106/53 97 09/24/16 11:29 97.0 77 16 97/55 97 I/O 09/24/16 09/24/16 09/24/16 09/25/16 09/25/16 09/25/16 07:00 15:00 23:00 07:00 15:00 23:00 Intake Total 0 ml 480 ml 480 ml Output Total 0 ml 650 ml 600 ml Balance 0 ml 480 ml -170 ml -600 ml Intake Oral 0 ml 480 ml 480 ml Output Urine Total 0 ml 650 ml 600 ml # Voids 2 1 # Bowel Movements 0 0 0 Result Diagram: 09/25/16 0550 09/25/16 0550 Objective Remarks GENERAL: in NAD CARDIOVASCULAR: Regular rate and rhythm without murmurs, gallops, or rubs. RESPIRATORY: Breath sounds equal bilaterally. No accessory muscle use. GASTROINTESTINAL: Abdomen soft, non-tender, nondistended. MUSCULOSKELETAL: left leg in knee immobilizer. + 2 DP pulses and sensation intact. BACK: Nontender without obvious deformity. No CVA tenderness. Medications and IVs Current Medications Methylprednisolone Sodium Succinate (SoluMEDROL INJ) 125 mg ONCE ONCE IM Last administered on 09/23/16 12:40; Start 09/23/16 at 12:30; Stop 09/23/16 at 12:31; Status DC Sodium Chloride 2 ml 2 ml UNSCH PRN IVF FLUSH AFTER USING IV ACCESS; Start 09/23 at 19:00 Sodium Chloride (NS 500 ml Inj) 500 ml @ 500 mls/hr ONCE ONCE IV Last administered on 09/23/16 19:32; Start 09/23/16 at 19:00; Stop 09/23/16 at 19:59; Status DC Morphine Sulfate 4 mg 4 mg ONCE ONCE IV PUSH Last administered on 09/23/16 19: 32; Start 09/23/16 at 19:30; Stop 09/23/16 at 19:31; Status DC Sodium Chloride (NS 1000 ml Inj) 1,000 ml @ 100 mls/hr Q10H IV Last administered on 09/23/16 20:17; Start 09/23/16 at 20:17 Sodium Chloride (NS Flush) 2 ml UNSCH PRN IV FLUSH FLUSH AFTER USING IV ACCESS ; Start 09/23/16 at 20:30 Sodium Chloride (NS Flush) 2 ml BID IV FLUSH Last administered on 09/24/16 19: 59; Start 09/23/16 at 21:00 Ondansetron HCl (Zofran Inj) 4 mg Q6H PRN IVP NAUSEA OR VOMITING; Start at 20:30 Bisacodyl (Dulcolax Supp) 10 mg DAILY PRN RECTAL CONSTIPATION; Start 09/23/16 at 20:30 Acetaminophen (Tylenol) 650 mg Q6H PRN PO FEVER/PAIN SCALE 1 TO 2; Start at 20:30 Acetaminophen/ Hydrocodone Bitart ([place] 5-325 Mg) 1 tab Q4H PRN PO PAIN SCALE 3 TO 5 Last administered on 09/24/16 20:06; Start 09/23/16 at 20:30 Morphine Sulfate (Morphine Inj) 2 mg Q3H PRN IV Pain 6-10 Last administered on 09/25/16 05:37; Start 09/23/16 at 20:30 Benztropine Mesylate (Cogentin) 2 mg BID PO Last administered on 09/24/16 19:58 ; Start 09/23/16 at 21:00 Levothyroxine Sodium (Synthroid) 100 mcg DAILY PO ; Start 09/24/16 at 09:00; Stop 09/24/16 at 09:00; Status DC Lurasidone HCl (Latuda) 160 mg HS PO Last administered on 09/24/16 19:59; Start 09/23/16 at 21:00 Venlafaxine HCl (Effexor Xr) 75 mg DAILY PO Last administered on 09/24/16 09:34 ; Start 09/24/16 at 09:00 Lorazepam (Ativan Inj) 2 mg Q3H PRN IV PUSH WITHDRAWAL/AGITATION; Start at 01:00 Magnesium Hydroxide (Milk Of Magnesia Liq) 30 ml DAILY PRN PO BM; Start at 09:00 Sennosides (Senokot) 17.2 mg DAILY PO ; Start 09/25/16 at 09:00 A/P Problem List: (1) Fall ICD Code: W19.XXXA Status: Acute (2) Tibial plateau fracture, left ICD Code: S82.142A Status: Acute (3) Schizophrenia ICD Code: F20.9 Status: Chronic (4) Tobacco abuse ICD Code: Z72.0 Status: Chronic Assessment and Plan This is a 41 y/o M with s/p mechanical slip and fall 2 wks ago Left Tibial Plateau Fx -s/p fall 2 wks ago w/ ongoing c/o pain, mild swelling to left knee. -X-ray w/ T-shaped fracture involving proximal tibia and tibial plateau. -patient scheduled for fixation of plateau tomorrow. -continue with onweightbearing and maintain knee immobilizer, ice and elevate, and pain control. Patient NPO tonight. Schizophrenia -continue home Benztropine, Latuda and Effexor. Tobacco Abuse - Pt counselled. Ativan/NicoDerm prn DVT Prophylaxis: Anticoagulation post op per Ortho Surgery tomorrow for fixation of plateau Discharge Planning patient schedule for surgery tomorrow. Problem Qualifiers (1) Tibial plateau fracture, left: Qualified Code: S82.142A - Tibial plateau fracture, left, closed, initial encounter Blanca Ramirez MD Sep 25, 2016 09:18
[2016-09-25] MEDS: MAGNESIUM HYDROXIDE SUSP 30 ML CUP PO PRN (09:56)
[2016-09-25] MEDS: SENNOSIDES 8.6 MG TAB PO SCH (09:56)
[2016-09-25] MEDS: BENZTROPINE MESYLATE 2 MG TAB PO SCH ×2 (09:57→22:03)
[2016-09-25] MEDS: VENLAFAXINE HCL XR 75 MG CAP PO SCH (09:57)
[2016-09-25 12:00] VITALS: BP 112/67; PULSE 75; RESP 18; TEMP 97.4; O2SAT 97
[2016-09-25] MEDS: ACETAMINOPHEN/HYDROcodone 325 MG/5 MG TAB PO PRN ×3 (13:52→22:02)
[2016-09-25 16:00] VITALS: BP 108/62; PULSE 65; RESP 18; TEMP 96.1; O2SAT 96
[2016-09-25 19:42] VITALS: BP 128/74; PULSE 86; RESP 18; TEMP 97.7; O2SAT 97
[2016-09-25 20:15] VITALS: BP 114/63; PULSE 74; RESP 17; TEMP 96.8; O2SAT 95
[2016-09-25] MEDS: LACTULOSE SYRUP 20 GM/30 ML CUP PO SCH (22:02)
[2016-09-25] MEDS: LURASIDONE 40 MG TAB PO SCH (22:03)
[2016-09-25] MEDS ORDERED: SODIUM CHLORID 0.9% 500 ML IV PRN (23:45)
[2016-09-25] MEDS ORDERED: CHLORHEXIDINE GLUCONATE 2 % 1 PACK (2 CLOTHS) TOPICAL PRN (23:45)
[2016-09-25] MEDS ORDERED: METOPROLOL TARTRATE 25 MG TAB PO PRN (23:45)
[2016-09-25] MEDS ORDERED: INSULIN HUMAN REGULAR 1,000 UNITS/10 ML VIAL SQ PRN (23:45)
[2016-09-25] MEDS ORDERED: POVIDONE IODINE 5% (ANTISEPSIS KIT) 4 APPLICATIONS EACH NARE PRN (23:45)
[2016-09-25] MEDS ORDERED: LACTATED RINGER'S 1000 ML INJ 1,000 ML IV SCH (23:45)
[2016-09-26 00:15] VITALS: BP 121/74; PULSE 78; RESP 17; TEMP 97.1; O2SAT 96
[2016-09-26 04:15] VITALS: BP 110/68; PULSE 78; RESP 17; TEMP 97; O2SAT 95
[2016-09-26] MEDS: ACETAMINOPHEN/HYDROcodone 325 MG/5 MG TAB PO PRN (05:01)
--- NOTE | 2016-09-26 06:56 | PD.ORT.PN ---
Subjective Subjective Remarks Pain controlled no new complaints Objective Vitals Vital Signs Date Time Temp Pulse Resp B/P Pulse Ox O2 Delivery O2 Flow Rate FiO2 09/26/16 04:15 97.0 78 17 110/68 95 09/26/16 00:15 97.1 78 17 121/74 96 09/25/16 20:15 96.8 74 17 114/63 95 09/25/16 16:00 96.1 65 18 108/62 96 09/25/16 12:00 97.4 75 18 112/67 97 09/25/16 09:00 Room Air 09/25/16 07:27 96.8 68 18 118/71 97 I/O 09/25/16 09/25/16 09/25/16 09/26/16 09/26/16 09/26/16 07:00 15:00 23:00 07:00 15:00 23:00 Intake Total 600 ml 240 ml Output Total 600 ml 1000 ml 1050 ml 675 ml Balance -600 ml -400 ml -810 ml -675 ml Intake Oral 600 ml 240 ml Output Urine Total 600 ml 1000 ml 1050 ml 675 ml # Bowel Movements 0 0 0 Result Diagram: 09/25/16 0550 09/25/16 0550 Imaging Last 72 hours Impressions Knee X-Ray 09/23/16 1219 Signed Impressions: Service Date/Time: Friday, September 23, 2016 13:00 - CONCLUSION: T-shaped fracture involving proximal tibia and tibial plateau. Teto Salazar MD FACR Lower Extremity CT 09/23/16 0000 Signed Impressions: Service Date/Time: Friday, September 23, 2016 16:24 - CONCLUSION: Comminuted proximal tibial fractures involving medial, lateral, and posterior lateral articular surface and with fracture lines extending to the iliac spines. There is also a solitary longitudinal fracture through the proximal fibula. Kevin Traylor MD Objective Remarks Left lower extremity: No pain with hip or ankle range of motion. Knee range of motion is from 0 to 80. He has tenderness over both the lateral and medial plateaus. Moderate swelling and skin is intact. Distally intact sensation with good capillary refills and strong dorsiflexion plantar flexion foot Assessment & Plan Assessment and Plan Left tibia plateau fracture Nothing by mouth Surgery today for fixation of plateau Nonweightbearing and maintain knee immobilizer Ice and elevate Tyler Huffman Jr. PA Sep 26, 2016 06:56
[2016-09-26 08:00] VITALS: BP 115/60; PULSE 70; RESP 16; TEMP 97.2; O2SAT 96
[2016-09-26] MEDS: BENZTROPINE MESYLATE 2 MG TAB PO SCH ×2 (08:28→22:02)
[2016-09-26] MEDS: VENLAFAXINE HCL XR 75 MG CAP PO SCH (08:28)
[2016-09-26] MEDS: SODIUM CHLORIDE 0.9% FLUSH 10 ML FLUSH IV FLUSH SCH ×2 (08:32→22:03)
[2016-09-26] MEDS: MORPHINE SULFATE 4 MG/ML INJ IV PRN (08:37)
[2016-09-26] MEDS ORDERED: DEXAMETHASONE SOD PHOS 4 MG/ML VIAL ONE (10:04)
[2016-09-26] MEDS ORDERED: MIDAZOLAM HCL 2 MG/2 ML VIAL ONE (10:04)
[2016-09-26] MEDS ORDERED: GENTAMICIN SULFATE 80 MG/2 ML VIAL ONE (10:54)
[2016-09-26] MEDS ORDERED: ceFAZolin 2 GM PREMIX 50 ML ONE (10:54)
[2016-09-26] MEDS ORDERED: VANCOMYCIN HCL 1000 MG VIAL ONE (10:54)
[2016-09-26] MEDS ORDERED: SODIUM CHLOR 0.9% 250 ML INJ 250 ML ONE (10:54)
[2016-09-26] MEDS ORDERED: ONDANSETRON HCL 4 MG/2 ML VIAL IV PUSH ONE (12:00)
[2016-09-26] MEDS ORDERED: PROPOFOL 200 MG/20 ML AMP IV ONE (12:00)
[2016-09-26] MEDS ORDERED: NEOSTIGMINE 3 MG/3 ML SYR IV ONE (12:00)
[2016-09-26] MEDS ORDERED: ACETAMINOPHEN 1000 MG/100 ML VIAL IV ONE (12:08)
[2016-09-26] MEDS ORDERED: DICLOFENAC SODIUM 37.5 MG/ML VIAL IV PUSH ONE (12:08)
[2016-09-26] MEDS ORDERED: MISCELLANEOUS NURSING INFORMATION XX PRN (12:30)
[2016-09-26] MEDS ORDERED: SODIUM CHLORIDE 0.9% FLUSH 5 ML FLUSH IVF PRN (12:30)
[2016-09-26] MEDS ORDERED: MORPHINE SULFATE 4 MG/ML INJ IV PUSH PRN (12:30)
[2016-09-26] MEDS ORDERED: Post-op Orders (for Pharmacy) MISC XX ONE (12:30)
--- NOTE | 2016-09-26 12:33 | PD.OP ---
cc: Carlitos Melton MD Operative Report Date of Surgery: Sep 26, 2016 Preoperative Diagnosis: Comminuted left tibia bicondylar plateau fracture Postoperative Diagnosis: Same Procedure: Open reduction internal fixation left bicondylar tibial plateau Anesthesia: Gen. Surgeon: Carlitos Melton Tube Closing Machine Operator(s): David Huffman PA-C The surgical procedure was assisted by my physician clinical lab assistant. My P.A. presence was necessary throughout this case for the manipulation and positioning of the surgical extremity. My P.A. was assisting me throughout the duration of this procedure. The skill set of a physician clinical lab assistant was medically necessary to complete this procedure. During the surgical case the surgical scrub technician was working at the back table and the physician clinical lab assistant was directly assisting me. Operation and Findings: This patient was seen and evaluated preoperatively. Patient sustained an injury resulting a bicondylar left tibial plateau fracture. Informed consent was obtained preoperatively after detailed discussion of the risks and benefits of surgery. Risk of surgery including bleeding, infection, nonunion, painful hardware, stiffness, loss of motion, arthritis, need for knee replacement, as well as medical complications including blood clots, stroke, heart attack, and were discussed. I also discussed the possibility of using allograft bone graft . Preoperatively the operative site was marked. Patient was brought to the operating room and placed on the operating room table. Intravenous sedation and general endotracheal anesthesia were administered. IV antibiotics were given and a time out procedure was preformed. Attention was now turned towards the medial tibial plateau. A 6 inch incision was made over the posterior medial aspect of the tibial plateau. Saphenous vein was protected. The PES insertion was elevated to expose the posterior medial tibial plateau. Fracture was visualized. Attention was now turned toward reduction. Traction was applied. Fracture was manipulated. The fracture occurred approximately 2 weeks ago. There was some fracture callus formation present. Osteotomes were used to mobilize the posterior medial fragment. Fracture keyed in excellent alignment. A fracture tenaculum was used to compress fracture. K wires were used for provisional fixation. Fluoroscopy confirmed excellent alignment of fracture. Two 3.5 cortical lag screws were placed from anterior to posterior. Good compression was obtained. A Synthes plate was now placed along the posterior medial tibial plateau. Plate was provisionally held to bone with K wires. Fluoroscopy confirmed plate placement. 3.5 cortical screws were used to compress plate to bone. Next the lateral plateau was visualized under fluoroscopy. There was minimal depression. A bone tamp was used to elevate a portion of the lateral plateau. Multiple locking screws were now placed in the proximal row of the plate. 3 additional 3.5 cortical screws were placed above the plate to support the articular surface.. K-wires were removed. Final fluoroscopy showed excellent alignment of fracture with well-placed hardware. The incision was thoroughly irrigated. Attention was now turned to closure. Fascia and iliotibial band were closed with #1 Vicryl,. Subcutaneous tissues closed with 3-0 Vicryl and skin was closed with anam. Sterile dressings were applied. The patient was transferred to recovery in stable condition. Carlitos Melton MD Sep 26, 2016 12:32
[2016-09-26] MEDS ORDERED: fentaNYL CITRATE 250 MCG/5 ML AMP ONE (12:50)
[2016-09-26] MEDS ORDERED: *morphine SULFATE 8 MG/ML PERIprocedure ONLY ONE (12:52)
[2016-09-26] MEDS: LACTATED RINGER'S 1000 ML INJ 1,000 ML IV SCH (13:08)
[2016-09-26] MEDS: KETOROLAC TROMETHAMINE 30 MG/ML (IVP) VIAL IVP SCH ×2 (13:30→22:03)
[2016-09-26] MEDS ORDERED: ERGOCALCIFEROL (VIT D2) 50,000 UNIT CAP PO SCH (14:00)
--- NOTE | 2016-09-26 14:23 | HHI.PR ---
Subjective Remarks patient denies any complaints denies cp/sob denies fevers/chills sp ORIF left medial plateau Objective Vitals Vital Signs Date Time Temp Pulse Resp B/P Pulse Ox O2 Delivery O2 Flow Rate FiO2 09/26/16 13:30 97.9 75 12 139/88 97 Room Air 09/26/16 13:15 78 14 135/94 96 Room Air 09/26/16 13:00 72 13 138/86 95 Room Air 09/26/16 12:45 75 12 131/86 97 Room Air 09/26/16 12:42 97.8 74 15 147/84 98 Room Air 09/26/16 08:00 97.2 70 16 115/60 96 09/26/16 04:15 97.0 78 17 110/68 95 09/26/16 00:15 97.1 78 17 121/74 96 09/25/16 20:15 96.8 74 17 114/63 95 09/25/16 16:00 96.1 65 18 108/62 96 I/O 09/25/16 09/25/16 09/25/16 09/26/16 09/26/16 09/26/16 07:00 15:00 23:00 07:00 15:00 23:00 Intake Total 600 ml 240 ml 500 ml Output Total 600 ml 1000 ml 1050 ml 675 ml 100 ml Balance -600 ml -400 ml -810 ml -675 ml 400 ml Intake Oral 600 ml 240 ml Other 500 ml Output Urine Total 600 ml 1000 ml 1050 ml 675 ml Estimated Blood Loss 100 ml # Bowel Movements 0 0 0 Result Diagram: 09/25/16 0550 09/25/16 0550 Imaging Last Impressions Knee X-Ray 09/23/16 1219 Signed Impressions: Service Date/Time: Friday, September 23, 2016 13:00 - CONCLUSION: T-shaped fracture involving proximal tibia and tibial plateau. Teto Salazar MD FACR Lower Extremity CT 09/23/16 0000 Signed Impressions: Service Date/Time: Friday, September 23, 2016 16:24 - CONCLUSION: Comminuted proximal tibial fractures involving medial, lateral, and posterior lateral articular surface and with fracture lines extending to the iliac spines. There is also a solitary longitudinal fracture through the proximal fibula. Kevin Traylor MD Objective Remarks GENERAL: in NAD CARDIOVASCULAR: Regular rate and rhythm without murmurs, gallops, or rubs. RESPIRATORY: Breath sounds equal bilaterally. No accessory muscle use. GASTROINTESTINAL: Abdomen soft, non-tender, nondistended. MUSCULOSKELETAL: left leg in knee immobilizer. + 2 DP pulses and sensation intact. BACK: Nontender without obvious deformity. No CVA tenderness. Procedures sp ORIF left medial plateau on 09/26/16 Medications and IVs Current Medications Medications (Trade) Dose Ordered Sig/Todd Route Start Time Stop Time Status Last Admin (NS 1000 ml Inj) 1,000 ml @ 100 mls/hr Q10H IV 09/23/16 20:17 09/23/16 20:17 (NS Flush) 2 ml UNSCH PRN IV FLUSH 09/23/16 20:30 (NS Flush) 2 ml BID IV FLUSH 09/23/16 21:00 09/26/16 08:32 (Zofran Inj) 4 mg Q6H PRN IVP 09/23/16 20:30 (Dulcolax Supp) 10 mg DAILY PRN RECTAL 09/23/16 20:30 (Tylenol) 650 mg Q6H PRN PO 09/23/16 20:30 (Morphine Inj) 2 mg Q3H PRN IV 09/23/16 20:30 09/26/16 08:37 (Cogentin) 2 mg BID PO 09/23/16 21:00 09/26/16 08:28 (Latuda) 160 mg HS PO 09/23/16 21:00 09/25/16 22:03 (Effexor Xr) 75 mg DAILY PO 09/24/16 09:00 09/26/16 08:28 (Ativan Inj) 2 mg Q3H PRN IV PUSH 09/24/16 01:00 (Milk Of Magnesia Liq) 30 ml DAILY PRN PO 09/25/16 09:00 09/25/16 09:56 (Senokot) 17.2 mg DAILY PO 09/25/16 09:00 09/25/16 09:56 Lactulose 30 ml 30 ml HS PO 09/25/16 21:00 09/25/16 22:02 Sodium Chloride 500 ml @ 30 mls/hr [id number] PRN IV 09/25/16 23:45 09/28/16 23:44 (Lr 1000 ml Inj) 1,000 ml @ 80 mls/hr [id number] IV 09/26/16 13:00 09/26/16 13:08 Enoxaparin Sodium 30 mg 30 mg Q24H SQ 09/27/16 12:00 Cefazolin Sodium/ Dextrose 50 ml @ 100 mls/hr Q8H IV 09/26/16 18:00 09/28/16 10:29 (Vancomycin Inj/ NS 250 ml Inj) 250 ml @ 250 mls/hr Q12H IV 09/26/16 23:00 09/27/16 23:59 Miscellaneous Information UNSCH PRN XX 09/26/16 12:30 ([place] 10-325 Mg) 1 tab Q3H PRN PO 09/26/16 12:30 (Toradol Inj) 30 mg Q8HR IVP 09/26/16 14:00 09/28/16 06:01 09/26/16 13:30 (Oscal-D 250-125) 250 mg TID PO 09/26/16 13:00 (Morphine Inj) 4 mg Q3H PRN IV PUSH 09/26/16 12:30 (Vitamin D3) 1,000 units DAILY PO 09/27/16 09:00 (Drisdol) 50,000 units Q7D PO 09/26/16 14:00 Urinary Catheter: No Vascular Central Line Catheter: No A/P Problem List: (1) Fall ICD Code: W19.XXXA Status: Acute (2) Tibial plateau fracture, left ICD Code: S82.142A Status: Acute (3) Schizophrenia ICD Code: F20.9 Status: Chronic (4) Tobacco abuse ICD Code: Z72.0 Status: Chronic (5) Anemia ICD Code: D64.9 Status: Acute Assessment and Plan 21-year-old male status post mechanical slip and fall 2 weeks ago with a resultant left tibial plateau fracture. 1. Left tibial plateau fracture: After a mechanical fall 2 weeks ago. X-ray showed T-shaped fracture involving proximal tibia and tibial plateau. Patient status post ORIF of the left tibial plateau fracture. Postop day 0. Continue pain control as per orthopedic surgery recommendations. Patient currently on Lindstrom and morphine sulfate. Patient also on IV antibiotics as per orthopedic surgery. Patient currently on vancomycin and Septisol and IV. 2. Schizophrenia: Seems to be stable. Continue home benztropine, let to that and Effexor. 3. Tobacco abuse: Advised smoking cessation. Ativan/NicoDerm when necessary. 4. Anemia: With high MCV. Will check reticulocyte count, serum B12 and folate level, TSH and liver function tests. GI prophylaxis: I will add a PPI. DVT prophylaxis: SCDs, patient scheduled to start on Lovenox subcutaneous as per orthopedic surgery on 09/27/16. Discharge Planning Continue to monitor in the medical floor. Problem Qualifiers (1) Tibial plateau fracture, left: Qualified Code: S82.142A - Tibial plateau fracture, left, closed, initial encounter (2) Anemia: Qualified Code: D64.9 - Anemia, unspecified type Lewis Cruz MD Sep 26, 2016 14:23
--- NOTE | 2016-09-26 14:35 | RADRPT ---
EXAM DATE/TIME: 09/26/2016 12:08 [facility] COMPARISON: No previous studies available for comparison. INDICATIONS : Post-op ORIF left tibial plateau fracture. MEDICAL HISTORY : None. SURGICAL HISTORY : None. ENCOUNTER: Subsequent ACUITY: 4 - 6 days PAIN SCORE: Non-responsive. LOCATION: Left knee. FINDINGS: There are postsurgical changes with operative reduction and internal fixation of the previously seen fracture. The alignment is anatomic. CONCLUSION: Postsurgical changes as above. Bradley Houser MD on September 26, 2016 at 14:33 Board Certified Radiologist. This report was verified electronically.
[2016-09-26] MEDS: MAGNESIUM HYDROXIDE SUSP 30 ML CUP PO PRN (17:20)
[2016-09-26] MEDS: CALCIUM/VITAMIN D 250 MG/125 U TAB PO SCH (17:21)
[2016-09-26] MEDS: SENNOSIDES 8.6 MG TAB PO SCH (17:21)
[2016-09-26] MEDS: ACETAMINOPHEN/HYDROcodone 325 MG/10 MG TAB PO PRN ×2 (17:22→22:01)
[2016-09-26] MEDS: ceFAZolin 2 GM PREMIX 50 ML IV SCH (17:25)
[2016-09-26 17:36] LABS: RETIC % 2.2 % (0.4-3.0); REVIEW FLAG FINAL
[2016-09-26 17:37] LABS: MEAN CELL VOLUME 100.4 FL (80.0-100.0); MEAN CORPUSCULAR HEMOGLOBIN 34.5 PG (27.0-34.0); MEAN CORPUSCULAR HGB CONC 34.3 % (32.0-36.0); PLATELET COUNT 406 TH/MM3 (150-450); RED BLOOD COUNT 3.78 MIL/MM3 (4.50-5.90); RED CELL DISTRIBUTION WIDTH 13.2 % (11.6-17.2); REVIEW FLAG FINAL; WHITE BLOOD COUNT 8.2 TH/MM3 (4.0-11.0)
[2016-09-26] MEDS ORDERED: SODIUM CHLORIDE 0.9% FLUSH 5 ML FLUSH IVF SCH (21:00)
[2016-09-26 21:07] LABS: BICARBONATE 29.9 MEQ/L (21.0-32.0); INDIRECT BILIRUBIN 0.3 MG/DL (0.0-0.8); MAGNESIUM 2.1 MG/DL (1.5-2.5); POTASSIUM 4.4 MEQ/L (3.5-5.1); TOTAL BILIRUBIN ADULT 0.4 MG/DL (0.2-1.0)
[2016-09-26] MEDS: LURASIDONE 40 MG TAB PO SCH (22:02)
[2016-09-26] MEDS: LACTULOSE SYRUP 20 GM/30 ML CUP PO SCH (22:02)
[2016-09-26] MEDS: VANCOMYCIN INJ 1,000 MG in SODIUM CHLOR 0.9% 250 ML INJ 250 ML IV SCH (22:04)
[2016-09-27] VITALS (8 sets, daily range): BP systolic 102–122; BP diastolic 58–72; PULSE 18–82; RESP 16–18; TEMP 96.5–98.3; O2SAT 93–97
[2016-09-27] MEDS: ceFAZolin 2 GM PREMIX 50 ML IV SCH ×3 (02:59→18:24)
--- NOTE | 2016-09-27 06:50 | PD.ORT.PN ---
Subjective Subjective Remarks POD 1 s/p ORIF left tibial plateau doing well. pain controlled. resting comfrotably. Objective Vitals Vital Signs Date Time Temp Pulse Resp B/P Pulse Ox O2 Delivery O2 Flow Rate FiO2 09/27/16 04:15 97.5 67 17 110/65 97 09/27/16 00:50 97.7 77 17 105/58 96 09/26/16 13:45 Room Air 09/26/16 13:30 97.9 75 12 139/88 97 Room Air 09/26/16 13:15 78 14 135/94 96 Room Air 09/26/16 13:00 72 13 138/86 95 Room Air 09/26/16 12:45 75 12 131/86 97 Room Air 09/26/16 12:42 97.8 74 15 147/84 98 Room Air 09/26/16 08:00 97.2 70 16 115/60 96 I/O 09/26/16 09/26/16 09/26/16 09/27/16 09/27/16 09/27/16 07:00 15:00 23:00 07:00 15:00 23:00 Intake Total 500 ml 480 ml Output Total 675 ml 100 ml 1050 ml Balance -675 ml 400 ml -570 ml Intake Oral 480 ml Other 500 ml Output Urine Total 675 ml 1050 ml Estimated Blood Loss 100 ml # Bowel Movements 0 0 Result Diagram: 09/26/16 1714 09/26/16 1714 Imaging Last 72 hours Impressions Knee X-Ray 09/23/16 1219 Signed Impressions: Service Date/Time: Friday, September 23, 2016 13:00 - CONCLUSION: T-shaped fracture involving proximal tibia and tibial plateau. Teto Salazar MD FACR Lower Extremity CT 09/23/16 0000 Signed Impressions: Service Date/Time: Friday, September 23, 2016 16:24 - CONCLUSION: Comminuted proximal tibial fractures involving medial, lateral, and posterior lateral articular surface and with fracture lines extending to the iliac spines. There is also a solitary longitudinal fracture through the proximal fibula. Kevin Traylor MD Objective Remarks LLE: dressings clean and dry. intact. +knee brace. good dorsiflexion. NVI Assessment & Plan Assessment and Plan 1) Left tibia plateau fracture s/p ORIF - POD 1 -NWB -maintain knee brace except for PT -PROM 0-90 -no quad sets or leg lifts -plan for potential DC home tomorrow if doing well. patient has a "[facility]" can stay in as he transitions from homeless to having care home. states has people that can help him Oj Levine Sep 27, 2016 06:50
[2016-09-27] MEDS ORDERED: HYDR-3366 PO (06:51)
[2016-09-27] MEDS ORDERED: WALKER/ADULT/FO1 MIS (06:51)
[2016-09-27] MEDS ORDERED: XARE10TA PO (06:51)
[2016-09-27 07:10] LABS: HEMATOCRIT 34.5 % (39.0-51.0); MEAN CELL VOLUME 101.3 FL (80.0-100.0); MEAN CORPUSCULAR HGB CONC 33.6 % (32.0-36.0); PLATELET COUNT 345 TH/MM3 (150-450); RED BLOOD COUNT 3.41 MIL/MM3 (4.50-5.90); REVIEW FLAG FINAL; WHITE BLOOD COUNT 7.6 TH/MM3 (4.0-11.0)
[2016-09-27 07:35] LABS: BICARBONATE 32.8 MEQ/L (21.0-32.0); POTASSIUM 4.2 MEQ/L (3.5-5.1)
[2016-09-27] MEDS: ACETAMINOPHEN/HYDROcodone 325 MG/10 MG TAB PO PRN ×4 (10:27→21:42)
[2016-09-27] MEDS: VENLAFAXINE HCL XR 75 MG CAP PO SCH (10:27)
[2016-09-27] MEDS: CALCIUM/VITAMIN D 250 MG/125 U TAB PO SCH ×3 (10:27→18:23)
[2016-09-27] MEDS: CHOLECALCIFEROL (VIT D3) 1000 UNIT TAB PO SCH (10:27)
[2016-09-27] MEDS: BENZTROPINE MESYLATE 2 MG TAB PO SCH ×2 (10:27→21:42)
[2016-09-27] MEDS: SODIUM CHLORIDE 0.9% FLUSH 10 ML FLUSH IV FLUSH SCH ×2 (10:27→21:00)
[2016-09-27] MEDS: SENNOSIDES 8.6 MG TAB PO SCH (10:28)
--- NOTE | 2016-09-27 12:01 | HHI.PR ---
Subjective Remarks patient is sitting in bed pain controlled denies cp/sob denies nausea/abdominal pain Objective Vitals Vital Signs Date Time Temp Pulse Resp B/P Pulse Ox O2 Delivery O2 Flow Rate FiO2 09/27/16 08:00 96.5 78 16 105/64 97 09/27/16 06:29 93 09/27/16 04:15 97.5 67 17 110/65 97 09/27/16 00:50 97.7 77 17 105/58 96 09/26/16 13:45 Room Air 09/26/16 13:30 97.9 75 12 139/88 97 Room Air 09/26/16 13:15 78 14 135/94 96 Room Air 09/26/16 13:00 72 13 138/86 95 Room Air 09/26/16 12:45 75 12 131/86 97 Room Air 09/26/16 12:42 97.8 74 15 147/84 98 Room Air I/O 09/26/16 09/26/16 09/26/16 09/27/16 09/27/16 09/27/16 07:00 15:00 23:00 07:00 15:00 23:00 Intake Total 500 ml 480 ml 480 ml Output Total 675 ml 100 ml 1050 ml 600 ml Balance -675 ml 400 ml -570 ml -120 ml Intake Oral 480 ml 480 ml Other 500 ml Output Urine Total 675 ml 1050 ml 600 ml Estimated Blood Loss 100 ml # Bowel Movements 0 0 0 Result Diagram: 09/27/16 0618 09/27/16 0618 Imaging Last Impressions Knee X-Ray 09/26/16 0000 Signed Impressions: Service Date/Time: Monday, September 26, 2016 12:08 - CONCLUSION: Postsurgical changes as above. Bradley Houser MD Lower Extremity CT 09/23/16 0000 Signed Impressions: Service Date/Time: Friday, September 23, 2016 16:24 - CONCLUSION: Comminuted proximal tibial fractures involving medial, lateral, and posterior lateral articular surface and with fracture lines extending to the iliac spines. There is also a solitary longitudinal fracture through the proximal fibula. Kevin Traylor MD Objective Remarks GENERAL: in NAD CARDIOVASCULAR: Regular rate and rhythm without murmurs, gallops, or rubs. RESPIRATORY: Breath sounds equal bilaterally. No accessory muscle use. GASTROINTESTINAL: Abdomen soft, non-tender, nondistended. MUSCULOSKELETAL: left leg in knee immobilizer. + 2 DP pulses and sensation intact. BACK: Nontender without obvious deformity. No CVA tenderness. Procedures sp ORIF left medial plateau on 09/26/16 Medications and IVs Current Medications Medications (Trade) Dose Ordered Sig/Todd Route Start Time Stop Time Status Last Admin (NS 1000 ml Inj) 1,000 ml @ 100 mls/hr Q10H IV 09/23/16 20:17 09/23/16 20:17 (NS Flush) 2 ml UNSCH PRN IV FLUSH 09/23/16 20:30 (NS Flush) 2 ml BID IV FLUSH 09/23/16 21:00 09/27/16 10:27 (Zofran Inj) 4 mg Q6H PRN IVP 09/23/16 20:30 (Dulcolax Supp) 10 mg DAILY PRN RECTAL 09/23/16 20:30 (Tylenol) 650 mg Q6H PRN PO 09/23/16 20:30 (Morphine Inj) 2 mg Q3H PRN IV 09/23/16 20:30 09/26/16 08:37 (Cogentin) 2 mg BID PO 09/23/16 21:00 09/27/16 10:27 (Latuda) 160 mg HS PO 09/23/16 21:00 09/26/16 22:02 (Effexor Xr) 75 mg DAILY PO 09/24/16 09:00 09/27/16 10:27 (Ativan Inj) 2 mg Q3H PRN IV PUSH 09/24/16 01:00 (Milk Of Magnesia Liq) 30 ml DAILY PRN PO 09/25/16 09:00 09/26/16 17:20 (Senokot) 17.2 mg DAILY PO 09/25/16 09:00 09/27/16 10:28 Lactulose 30 ml 30 ml HS PO 09/25/16 21:00 09/26/16 22:02 Sodium Chloride 500 ml @ 30 mls/hr [id number] PRN IV 09/25/16 23:45 09/28/16 23:44 (Lr 1000 ml Inj) 1,000 ml @ 80 mls/hr [id number] IV 09/26/16 13:00 09/26/16 13:08 Enoxaparin Sodium 30 mg 30 mg Q24H SQ 09/27/16 12:00 Cefazolin Sodium/ Dextrose 50 ml @ 100 mls/hr Q8H IV 09/26/16 18:00 09/28/16 10:29 09/27/16 10:28 (Vancomycin Inj/ NS 250 ml Inj) 250 ml @ 250 mls/hr Q12H IV 09/26/16 23:00 09/27/16 23:59 09/26/16 22:04 Miscellaneous Information UNSCH PRN XX 09/26/16 12:30 ([place] 10-325 Mg) 1 tab Q3H PRN PO 09/26/16 12:30 09/27/16 10:27 (Toradol Inj) 30 mg Q8HR IVP 09/26/16 14:00 09/28/16 06:01 09/26/16 22:03 (Oscal-D 250-125) 250 mg TID PO 09/26/16 13:00 09/27/16 10:27 (Morphine Inj) 4 mg Q3H PRN IV PUSH 09/26/16 12:30 09/27/16 03:07 (Vitamin D3) 1,000 units DAILY PO 09/27/16 09:00 09/27/16 10:27 (Drisdol) 50,000 units Q7D PO 09/26/16 14:00 09/26/16 14:00 Urinary Catheter: No Vascular Central Line Catheter: No A/P Problem List: (1) Fall ICD Code: W19.XXXA Status: Acute (2) Tibial plateau fracture, left ICD Code: S82.142A Status: Acute (3) Schizophrenia ICD Code: F20.9 Status: Chronic (4) Tobacco abuse ICD Code: Z72.0 Status: Chronic (5) Anemia ICD Code: D64.9 Status: Acute Assessment and Plan 21-year-old male status post mechanical slip and fall 2 weeks ago with a resultant left tibial plateau fracture. 1. Left tibial plateau fracture: After a mechanical fall 2 weeks ago. X-ray showed T-shaped fracture involving proximal tibia and tibial plateau. Patient status post ORIF of the left tibial plateau fracture. Postop day 1. Continue pain control as per orthopedic surgery recommendations. Patient currently on [place] and morphine sulfate. Patient also on IV antibiotics as per orthopedic surgery. Sp Vancomycin IV x3 bags and Cefazolin x 6 doses to be given betwwen yesterday and today. 2. Schizophrenia: Seems to be stable. Continue home benztropine, let to that and Effexor. 3. Tobacco abuse: Advised smoking cessation. Ativan/NicoDerm when necessary. 4. Anemia: With high MCV. Will check reticulocyte count, serum B12 and folate level, TSH and liver function tests. GI prophylaxis: I will add a PPI. DVT prophylaxis: SCDs, patient scheduled to start on Lovenox subcutaneous as per orthopedic surgery on 09/27/16. Discharge Planning Continue to monitor in the medical floor. Problem Qualifiers (1) Tibial plateau fracture, left: Qualified Code: S82.142A - Tibial plateau fracture, left, closed, initial encounter (2) Anemia: Qualified Code: D64.9 - Anemia, unspecified type Lewis Cruz MD Sep 27, 2016 12:00
[2016-09-27] MEDS: VANCOMYCIN INJ 1,000 MG in SODIUM CHLOR 0.9% 250 ML INJ 250 ML IV SCH ×2 (12:36→23:57)
[2016-09-27] MEDS: ENOXAPARIN SODIUM 30 MG/0.3 ML SYRINGE SQ SCH (12:37)
[2016-09-27] MEDS: KETOROLAC TROMETHAMINE 30 MG/ML (IVP) VIAL IVP SCH ×2 (13:49→21:45)
[2016-09-27] MEDS: LACTATED RINGER'S 1000 ML INJ 1,000 ML IV SCH (14:00)
[2016-09-27] MEDS: LURASIDONE 40 MG TAB PO SCH (21:42)
[2016-09-27] MEDS: LACTULOSE SYRUP 20 GM/30 ML CUP PO SCH (21:42)
[2016-09-28] MEDS: ceFAZolin 2 GM PREMIX 50 ML IV SCH ×2 (01:07→09:29)
[2016-09-28] MEDS: ACETAMINOPHEN/HYDROcodone 325 MG/10 MG TAB PO PRN ×6 (01:08→22:03)
[2016-09-28] MEDS: SODIUM CHLOR 0.9% 1000 ML INJ 1,000 ML IV SCH ×2 (02:12→20:17)
[2016-09-28] MEDS: KETOROLAC TROMETHAMINE 30 MG/ML (IVP) VIAL IVP SCH (05:24)
--- NOTE | 2016-09-28 06:40 | PD.ORT.PN ---
Subjective Subjective Remarks POD 2 s/p ORIF left tibial plateau doing well. pain controlled. resting comfrotably. Objective Vitals Vital Signs Date Time Temp Pulse Resp B/P Pulse Ox O2 Delivery O2 Flow Rate FiO2 09/27/16 23:55 96.6 74 17 114/62 96 09/27/16 20:00 98.1 82 18 102/58 96 09/27/16 15:40 98.3 82 18 103/65 96 09/27/16 12:00 96.8 79 18 122/72 94 09/27/16 08:00 96.5 78 16 105/64 97 I/O 09/27/16 09/27/16 09/27/16 09/28/16 09/28/16 09/28/16 07:00 15:00 23:00 07:00 15:00 23:00 Intake Total 1200 ml 720 ml 1220 ml Output Total 1900 ml 550 ml Balance -700 ml 170 ml 1220 ml Intake Oral 1200 ml 720 ml IV Total 1220 ml Output Urine Total 1900 ml 550 ml # Voids 4 # Bowel Movements 0 0 Result Diagram: 09/27/16 0618 09/27/16 0618 Imaging Last 72 hours Impressions Knee X-Ray 09/23/16 1219 Signed Impressions: Service Date/Time: Friday, September 23, 2016 13:00 - CONCLUSION: T-shaped fracture involving proximal tibia and tibial plateau. Teto Salazar MD FACR Lower Extremity CT 09/23/16 0000 Signed Impressions: Service Date/Time: Friday, September 23, 2016 16:24 - CONCLUSION: Comminuted proximal tibial fractures involving medial, lateral, and posterior lateral articular surface and with fracture lines extending to the iliac spines. There is also a solitary longitudinal fracture through the proximal fibula. Kevin Traylor MD Objective Remarks LLE: dressings clean and dry. intact. +knee brace. good dorsiflexion. NVI Assessment & Plan Assessment and Plan 1) Left tibia plateau fracture s/p ORIF - POD 2 -NWB -maintain knee brace except for PT -PROM 0-90 -no quad sets or leg lifts -plan for potential DC home tomorrow if doing well. patient has a "[facility]" can stay in as he transitions from homeless to having fpc. states has people that can help him Oj Levine Sep 28, 2016 06:40
[2016-09-28 07:52] VITALS: BP 99/60; PULSE 77; RESP 17; TEMP 97.3; O2SAT 94
[2016-09-28] MEDS: SODIUM CHLORIDE 0.9% FLUSH 10 ML FLUSH IV FLUSH SCH ×2 (09:00→21:07)
[2016-09-28] MEDS: BACITRACIN OINT 0.9 GM PKT EXTERNAL SCH ×2 (09:00→21:08)
[2016-09-28] MEDS: CHOLECALCIFEROL (VIT D3) 1000 UNIT TAB PO SCH (09:29)
[2016-09-28] MEDS: BENZTROPINE MESYLATE 2 MG TAB PO SCH ×2 (09:29→21:05)
[2016-09-28] MEDS: SENNOSIDES 8.6 MG TAB PO SCH (09:29)
[2016-09-28] MEDS: VENLAFAXINE HCL XR 75 MG CAP PO SCH (09:29)
[2016-09-28] MEDS: CALCIUM/VITAMIN D 250 MG/125 U TAB PO SCH ×3 (09:29→18:00)
[2016-09-28] MEDS: LACTATED RINGER'S 1000 ML INJ 1,000 ML IV SCH ×3 (09:32→21:06)
[2016-09-28 11:53] VITALS: BP 109/64; PULSE 81; RESP 17; TEMP 97; O2SAT 96
[2016-09-28] MEDS: ENOXAPARIN SODIUM 30 MG/0.3 ML SYRINGE SQ SCH (14:10)
--- NOTE | 2016-09-28 14:50 | HHI.PR ---
Subjective Remarks no complaints denies cp/sob stable vital signs Objective Vitals Vital Signs Date Time Temp Pulse Resp B/P Pulse Ox O2 Delivery O2 Flow Rate FiO2 09/28/16 11:53 97.0 81 17 109/64 96 09/28/16 07:52 97.3 77 17 99/60 94 09/27/16 23:55 96.6 74 17 114/62 96 09/27/16 20:00 98.1 82 18 102/58 96 09/27/16 15:40 98.3 82 18 103/65 96 I/O 09/27/16 09/27/16 09/27/16 09/28/16 09/28/16 09/28/16 07:00 15:00 23:00 07:00 15:00 23:00 Intake Total 1200 ml 720 ml 1700 ml Output Total 1900 ml 550 ml 600 ml Balance -700 ml 170 ml 1100 ml Intake Oral 1200 ml 720 ml 480 ml IV Total 1220 ml Output Urine Total 1900 ml 550 ml 600 ml # Voids 4 # Bowel Movements 0 0 0 Result Diagram: 09/27/16 0618 09/27/16 0618 Imaging Last Impressions Knee X-Ray 09/26/16 0000 Signed Impressions: Service Date/Time: Monday, September 26, 2016 12:08 - CONCLUSION: Postsurgical changes as above. Bradley Houser MD Lower Extremity CT 09/23/16 0000 Signed Impressions: Service Date/Time: Friday, September 23, 2016 16:24 - CONCLUSION: Comminuted proximal tibial fractures involving medial, lateral, and posterior lateral articular surface and with fracture lines extending to the iliac spines. There is also a solitary longitudinal fracture through the proximal fibula. Kevin Traylor MD Objective Remarks GENERAL: in NAD CARDIOVASCULAR: Regular rate and rhythm without murmurs, gallops, or rubs. RESPIRATORY: Breath sounds equal bilaterally. No accessory muscle use. GASTROINTESTINAL: Abdomen soft, non-tender, nondistended. MUSCULOSKELETAL: left leg in knee immobilizer. + 2 DP pulses and sensation intact. BACK: Nontender without obvious deformity. No CVA tenderness. Procedures sp ORIF left medial plateau on 09/26/16 Medications and IVs Current Medications Medications (Trade) Dose Ordered Sig/Todd Route Start Time Stop Time Status Last Admin (NS 1000 ml Inj) 1,000 ml @ 100 mls/hr Q10H IV 09/23/16 20:17 09/28/16 02:12 (NS Flush) 2 ml UNSCH PRN IV FLUSH 09/23/16 20:30 (NS Flush) 2 ml BID IV FLUSH 09/23/16 21:00 09/27/16 10:27 (Zofran Inj) 4 mg Q6H PRN IVP 09/23/16 20:30 (Dulcolax Supp) 10 mg DAILY PRN RECTAL 09/23/16 20:30 (Tylenol) 650 mg Q6H PRN PO 09/23/16 20:30 (Morphine Inj) 2 mg Q3H PRN IV 09/23/16 20:30 09/26/16 08:37 (Cogentin) 2 mg BID PO 09/23/16 21:00 09/28/16 09:29 (Latuda) 160 mg HS PO 09/23/16 21:00 09/27/16 21:42 (Effexor Xr) 75 mg DAILY PO 09/24/16 09:00 09/28/16 09:29 (Ativan Inj) 2 mg Q3H PRN IV PUSH 09/24/16 01:00 (Milk Of Magnesia Liq) 30 ml DAILY PRN PO 09/25/16 09:00 09/26/16 17:20 (Senokot) 17.2 mg DAILY PO 09/25/16 09:00 09/28/16 09:29 Lactulose 30 ml 30 ml HS PO 09/25/16 21:00 09/27/16 21:42 Sodium Chloride 500 ml @ 30 mls/hr [id number] PRN IV 09/25/16 23:45 09/28/16 23:44 (Lr 1000 ml Inj) 1,000 ml @ 80 mls/hr [id number] IV 09/26/16 13:00 09/28/16 09:32 (Lovenox Inj) 30 mg Q24H SQ 09/27/16 12:00 09/28/16 14:10 Miscellaneous Information UNSCH PRN XX 09/26/16 12:30 ([place] 10-325 Mg) 1 tab Q3H PRN PO 09/26/16 12:30 09/28/16 14:11 (Oscal-D 250-125) 250 mg TID PO 09/26/16 13:00 09/28/16 14:10 (Morphine Inj) 4 mg Q3H PRN IV PUSH 09/26/16 12:30 09/27/16 03:07 (Vitamin D3) 1,000 units DAILY PO 09/27/16 09:00 09/28/16 09:29 (Drisdol) 50,000 units Q7D PO 09/26/16 14:00 09/26/16 14:00 Urinary Catheter: No Vascular Central Line Catheter: No A/P Problem List: (1) Fall ICD Code: W19.XXXA Status: Acute (2) Tibial plateau fracture, left ICD Code: S82.142A Status: Acute (3) Schizophrenia ICD Code: F20.9 Status: Chronic (4) Tobacco abuse ICD Code: Z72.0 Status: Chronic (5) Anemia ICD Code: D64.9 Status: Acute Assessment and Plan 21-year-old male status post mechanical slip and fall 2 weeks ago with a resultant left tibial plateau fracture. 1. Left tibial plateau fracture: After a mechanical fall 2 weeks ago. X-ray showed T-shaped fracture involving proximal tibia and tibial plateau. Patient status post ORIF of the left tibial plateau fracture. Postop day 1. Continue pain control as per orthopedic surgery recommendations. Patient currently on [place] and morphine sulfate. Patient also on IV antibiotics as per orthopedic surgery. Sp Vancomycin IV x3 bags and Cefazolin x 6 doses to be given betwwen yesterday and today. 2. Schizophrenia: Seems to be stable. Continue home benztropine, let to that and Effexor. 3. Tobacco abuse: Advised smoking cessation. Ativan/NicoDerm when necessary. 4. Anemia: With high MCV. TSH, vitamin D, vitamin B12 and folic acid within normal range. Hemoglobin stable. GI prophylaxis: I will add a PPI. DVT prophylaxis: SCDs, patient scheduled to start on Lovenox subcutaneous as per orthopedic surgery on 09/27/16. Discharge Planning Discharge in a.m. once cleared by orthopedic surgery. Problem Qualifiers (1) Tibial plateau fracture, left: Qualified Code: S82.142A - Tibial plateau fracture, left, closed, initial encounter (2) Anemia: Qualified Code: D64.9 - Anemia, unspecified type Lewis Cruz MD Sep 28, 2016 14:50
[2016-09-28 16:00] VITALS: BP 110/70; PULSE 70; RESP 18; TEMP 97.4; O2SAT 96
[2016-09-28 20:01] VITALS: BP 117/68; PULSE 74; RESP 18; TEMP 97.8; O2SAT 96
[2016-09-28] MEDS: LACTULOSE SYRUP 20 GM/30 ML CUP PO SCH (21:05)
[2016-09-28] MEDS: LURASIDONE 40 MG TAB PO SCH (21:06)
[2016-09-29] VITALS: BP 107/71; PULSE 81; RESP 16; TEMP 98.7; O2SAT 97
[2016-09-29] MEDS: ACETAMINOPHEN/HYDROcodone 325 MG/10 MG TAB PO PRN ×3 (01:29→15:52)
[2016-09-29] MEDS: SODIUM CHLOR 0.9% 1000 ML INJ 1,000 ML IV SCH (02:39)
--- NOTE | 2016-09-29 06:47 | PD.ORT.PN ---
Subjective Subjective Remarks POD 3 s/p ORIF left tibial plateau doing well. pain controlled. resting comfrotably. Objective Vitals Vital Signs Date Time Temp Pulse Resp B/P Pulse Ox O2 Delivery O2 Flow Rate FiO2 09/29/16 04:00 Room Air 09/29/16 00:00 98.7 81 16 107/71 97 09/29/16 00:00 Room Air 09/28/16 20:01 97.8 74 18 117/68 96 09/28/16 20:00 Room Air 09/28/16 16:00 97.4 70 18 110/70 96 09/28/16 11:53 97.0 81 17 109/64 96 09/28/16 07:52 97.3 77 17 99/60 94 I/O 09/28/16 09/28/16 09/28/16 09/29/16 09/29/16 09/29/16 07:00 15:00 23:00 07:00 15:00 23:00 Intake Total 1700 ml 720 ml 480 ml 480 ml Output Total 600 ml 1200 ml 750 ml 600 ml Balance 1100 ml -480 ml -270 ml -120 ml Intake Oral 480 ml 720 ml 480 ml 480 ml IV Total 1220 ml Output Urine Total 600 ml 1200 ml 750 ml 600 ml # Bowel Movements 0 Result Diagram: 09/27/16 0618 09/27/16 0618 Imaging Last 72 hours Impressions Knee X-Ray 09/23/16 1219 Signed Impressions: Service Date/Time: Friday, September 23, 2016 13:00 - CONCLUSION: T-shaped fracture involving proximal tibia and tibial plateau. Teto Salazar MD FACR Lower Extremity CT 09/23/16 0000 Signed Impressions: Service Date/Time: Friday, September 23, 2016 16:24 - CONCLUSION: Comminuted proximal tibial fractures involving medial, lateral, and posterior lateral articular surface and with fracture lines extending to the iliac spines. There is also a solitary longitudinal fracture through the proximal fibula. Kevin Traylor MD Objective Remarks LLE: dressings clean and dry. intact. +knee brace. good dorsiflexion. NVI Assessment & Plan Assessment and Plan 1) Left tibia plateau fracture s/p ORIF - POD 3 -NWB -maintain knee brace except for PT -PROM 0-90 -no quad sets or leg lifts -patient states [facility] Patient is ambulatory with crutches safely. As long as safe, ok for discharge to [facility] -f/u with Valentin or Munir in 2 weeks Oj Levine Sep 29, 2016 06:47
[2016-09-29 08:00] VITALS: BP 98/58; PULSE 82; RESP 19; TEMP 97.2; O2SAT 93
[2016-09-29] MEDS: SODIUM CHLORIDE 0.9% FLUSH 10 ML FLUSH IV FLUSH SCH (09:36)
[2016-09-29] MEDS: CHOLECALCIFEROL (VIT D3) 1000 UNIT TAB PO SCH (09:37)
[2016-09-29] MEDS: VENLAFAXINE HCL XR 75 MG CAP PO SCH (09:37)
[2016-09-29] MEDS: CALCIUM/VITAMIN D 250 MG/125 U TAB PO SCH ×2 (09:37→11:45)
[2016-09-29] MEDS: SENNOSIDES 8.6 MG TAB PO SCH (09:37)
[2016-09-29] MEDS: BENZTROPINE MESYLATE 2 MG TAB PO SCH (09:37)
[2016-09-29] MEDS: BACITRACIN OINT 0.9 GM PKT EXTERNAL SCH (09:38)
[2016-09-29] MEDS: ENOXAPARIN SODIUM 30 MG/0.3 ML SYRINGE SQ SCH (11:45)
[2016-09-29 12:00] VITALS: BP 108/60; PULSE 79; RESP 18; TEMP 96.9; O2SAT 95
[2016-09-29] MEDS ORDERED: LURA120T PO (13:22)
[2016-09-29] MEDS ORDERED: BENZ2TAB PO (13:22)
[2016-09-29] MEDS ORDERED: VENL75XR PO (13:22)
[2016-09-29] MEDS ORDERED: LEVO.1 PO (13:22)
--- NOTE | 2016-09-29 13:23 | HHI.DCPOC ---
Discharge Care Plan Diagnosis: (1) Tibial plateau fracture, left (2) Anemia (3) Fall (4) Tobacco abuse (5) Schizophrenia Goals to Promote Your Health * To prevent worsening of your condition and complications * To maintain your health at the optimal level Directions to Meet Your Goals Take your medications as prescribed Follow your dietary instruction Follow activity as directed Keep your appointments as scheduled Take your immunizations and boosters as scheduled If your symptoms worsen call your PCP, if no PCP go to Urgent Care Center or Emergency Room Smoking is Dangerous to Your Health. Avoid second hand smoke Call the 24-hour hour crisis hotline for domestic abuse at Lewis Cruz MD Sep 29, 2016 13:23
--- NOTE | 2016-11-24 10:46 | HHI.DS ---
Discharge Summary Admission Date Sep 23, 2016 at 19:50 Discharge Date: Sep 29, 2016 Admitting Diagnosis tib-fib fracture (1) Fall ICD Code: W19.XXXA Diagnosis: Principal (2) Tibial plateau fracture, left ICD Code: S82.142A Diagnosis: Principal (3) Schizophrenia ICD Code: F20.9 Diagnosis: Secondary (4) Tobacco abuse ICD Code: Z72.0 Diagnosis: Principal (5) Anemia ICD Code: D64.9 Diagnosis: Principal Procedures sp ORIF left medial plateau on 09/26/16 Brief History - From Admission This is a 41-year-old male with a PMH of Schizophrenia and Tobacco Abuse who presented to the ER with complaints of left knee pain. States pain has been ongoing for approx 2wks after a fall. States he has been getting around with crutches but has been having worsening pain. Follows w/ Dr. Balderrama as outpatient, but hasn't followed up for recent complaints. On arrival, BP 137/69 , HR 80, O2 sat 97% on RA, Afebrile. CBC essentially unremarkable except for elevated neutrophil count. Chemistry unremarkable. INR 1.0. Knee X-ray with T -shaped fracture involving proximal tibia and tibial plateau. Dr. Hickman consulted by ER physician, recommended CT Knee and consult for Dr. Hanson in am for surgical intervention. CT Knee w/ comminuted proximal tibial fractures involving medial lateral and posterior lateral articular surface with fracture lines extending into iliac spines, solitary longitudinal fracture through the proximal fibula. Imaging Last Impressions Knee X-Ray 09/26/16 0000 Signed Impressions: Service Date/Time: Monday, September 26, 2016 12:08 - CONCLUSION: Postsurgical changes as above. Bradley Houser MD Lower Extremity CT 09/23/16 0000 Signed Impressions: Service Date/Time: Friday, September 23, 2016 16:24 - CONCLUSION: Comminuted proximal tibial fractures involving medial, lateral, and posterior lateral articular surface and with fracture lines extending to the iliac spines. There is also a solitary longitudinal fracture through the proximal fibula. Kevin Traylor MD PE at Discharge GENERAL: in NAD CARDIOVASCULAR: Regular rate and rhythm without murmurs, gallops, or rubs. RESPIRATORY: Breath sounds equal bilaterally. No accessory muscle use. GASTROINTESTINAL: Abdomen soft, non-tender, nondistended. MUSCULOSKELETAL: left leg in knee immobilizer. + 2 DP pulses and sensation intact. BACK: Nontender without obvious deformity. No CVA tenderness. Hospital Course 21-year-old male status post mechanical slip and fall 2 weeks ago with a resultant left tibial plateau fracture. 1. Left tibial plateau fracture: After a mechanical fall 2 weeks ago. X-ray showed T-shaped fracture involving proximal tibia and tibial plateau. Patient status post ORIF of the left tibial plateau fracture. Continue pain control as per orthopedic surgery recommendations. Patient treated with [place] and morphine sulfate. Patient also sp IV antibiotics as per orthopedic surgery. Sp Vancomycin IV x3 bags and Cefazolin x 6 doses. 2. Schizophrenia: Home medications continued during hospitalization. These include Effexor and Latuda. 3. Tobacco abuse: Advised smoking cessation. Ativan/NicoDerm when necessary. 4. Anemia: With high MCV. TSH, vitamin D, vitamin B12 and folic acid within normal range. Hemoglobin stable. CBC monitored. 5. Hypothyroidism. TSH chacked and normal. Levothyroxine continued at same home dose. GI prophylaxis: Placed on a PPI. DVT prophylaxis: SCDs, patient scheduled to start on Lovenox subcutaneous as per orthopedic surgery on 09/27/16. Pt Condition on Discharge: Stable Discharge Disposition: Discharge Home Discharge Time: <= 30 minutes Discharge Instructions DIET: Follow Instructions for: As Tolerated, No Restrictions Activities you can perform: See Additionl Instruction Other Activity Instructions: -NWB -maintain knee brace except for PT -PROM 0-90 -no quad sets or leg lifts Follow up Referrals: Orthopedics - 10/11/16 @ [facility] with Carlitos Hanson MD New Medications: Hydrocodone-Acetaminophen ([place]) 10-325 Mg Tab 1 TAB PO Q4H PRN PAIN #60 Ref 0 TAB Rivaroxaban (Xarelto) 10 Mg Tab 10 MG PO DAILY Blood Clot Prevention #14 Ref 0 TAB Walker/Adult/Folding (Walker/Adult/Folding) 1 Mis Mis 1 EA .ROUTE DIRECTED #1 Ref 0 EA Continued Medications: Benztropine (Benztropine) 2 Mg Tab 2 MG PO BID schizophrenia #60 Ref 0 TAB (This prescription has been renewed) Levothyroxine (Synthroid) 100 Mcg Tab 100 MCG PO DAILY Thyroid #30 Ref 6 TAB (This prescription has been renewed) Lurasidone (Latuda) 120 Mg Tab 160 MG PO HS schizophrenia #30 Ref 0 TAB (This prescription has been renewed) Venlafaxine ER 24 HR (Effexor XR 24 HR) 75 Mg Cap 75 MG PO DAILY Depression Control #30 Ref 0 CAP (This prescription has been renewed) Discontinued Medications: Naproxen Sodium (Naproxen Sodium) 220 Mg Tab 440 MG PO BID Pain Management #60 Ref 0 TAB Lewis Cruz MD Nov 24, 2016 10:46
== END 2016-09-29 16:12 | disposition home or self-care (01) | DRG 494 ==
LOC: NETRI 11:53 → NEDA 19:50 → N06B 21:33
PROVIDERS: ADMIT Hospitalist; ATTEND Hospitalist
PROC: 0QSH04Z Reposition Left Tibia with Internal Fixation Device, Open Approach (ICD-10-PCS; principal; 2016-09-26 10:41)
DX: S82.142A Displaced bicondylar fracture of left tibia, initial encounter for closed fracture (principal); D64.9 Anemia, unspecified; F20.9 Schizophrenia, unspecified; F17.210 Nicotine dependence, cigarettes, uncomplicated; W13.2XXA Fall from, out of or through roof, initial encounter; Y92.89 Other specified places as the place of occurrence of the external cause
CPT/HCPCS: 73560; 73564; 73700; 76000; 80048; 80053; 80076; 82607; 82652; 82746; 83735; 84100; 84443; 85025; 85027; 85044; 85610; 93005; 94150; 96372; 96374; C1713; J0131; J0690; J1100; J1130; J1580; J1650; J1885; J2250; J2270; J2405; J2710; J2930; J3010; J3370; J7030; J7040; J7050; J7120; L1830